=== PATIENT | female | born 1955 | race Caucasian/White ===

== ENCOUNTER 2017-06-30 10:11 | Day surgery (SDC) | payer MEDICARE, OTHER ==
[2017-06-24 16:41] VITALS: BMI 35.9
[~2017-06-30 10:11] MED LIST: LACTATED RINGERS 1,000 ML IV SCH
[2017-06-30 11:00] VITALS: RESP 18; TEMP 98
[2017-06-30] MEDS ORDERED: LIDOCAINE 1% 20 ML VIAL (10MG/ML) FOR IV START INTRADERMA ONE (11:07)
[2017-06-30] MEDS ORDERED: ETOMIDATE 2 MG/ML 10 ML VIAL ONE (11:34)
[2017-06-30] MEDS ORDERED: KETAMINE 10 MG/ML 20 ML VIAL ONE (11:34)
[2017-06-30] MEDS ORDERED: LIDOCAINE 1% INJ 10MG/ML (20 ML MDV) ONE (11:34)
[2017-06-30] MEDS ORDERED: MIDAZOLAM 2 MG/2 ML VIAL ONE (11:34)
--- NOTE | 2017-06-30 11:44 | P.GSHP ---
History of Present Illness H&P Date: 06/30/17 Chief Complaint: GERD, constipation Is a 62-year-old female who sees Dr. Nakul Gee.. Patient has had issues with GERD and constipation. She presents today for EGD and colonoscopy Past Medical History Past Medical History: Hypertension History of Any Multi-Drug Resistant Organisms: None Reported Past Surgical History: Cholecystectomy, Hysterectomy, Orthopedic Surgery Additional Past Surgical History / Comment(s): hand sx, rt toe sx, rt knee x2, left knee, shoulder sx Past Anesthesia/Blood Transfusion Reactions: Postoperative Nausea & Vomiting ( PONV) Smoking Status: Former smoker - Past Family History Father Family Medical History: Cancer Additional Family Medical History / Comment(s): liver Medications and Allergies Home Medications Medication Instructions Recorded Confirmed Type ALPRAZolam [Xanax] 0.5 mg PO HS 06/24/17 06/30/17 History Lisinopril-Hctz 10-12.5 mg 1 tab PO DAILY 06/24/17 06/30/17 History [Zestoretic 10-12.5] Allergies Allergy/AdvReac Type Severity Reaction Status Date / Time acetaminophen [From Vicodin] Allergy Hallucinati Verified 06/24/17 14:10 ons codeine Allergy Unknown Verified 06/24/17 14:10 Egg Derived Allergy Anaphylaxis Verified 06/24/17 14:10 hydrocodone [From Vicodin] Allergy Hallucinati Verified 06/24/17 14:10 ons ibuprofen [From Motrin] Allergy swelling/An Verified 06/24/17 14:10 aphylaxis morphine Allergy Severe Verified 06/24/17 14:10 Vomiting Surgical - Exam Vital Signs Temp Pulse Resp BP Pulse Ox 98.0 F 69 18 151/83 94 L 06/30/17 10:57 06/30/17 10:57 06/30/17 10:57 06/30/17 10:57 06/30/17 10:57 - General well developed, no distress - Eyes PERRL - ENT normal pinna - Neck no masses - Respiratory normal expansion - Cardiovascular Rhythm: regular - Abdomen Abdomen: soft, non tender Assessment and Plan Assessment: GERD, constipation. We'll perform EGD and colonoscopy.
--- NOTE | 2017-06-30 12:02 | P.OP ---
Date of Procedure: 06/30/17 Preoperative Diagnosis: GERD Constipation Postoperative Diagnosis: Antral gastritis Hiatal hernia Mild esophagitis Diverticulosis Rectal polyp Procedure(s) Performed: EGD Colonoscopy Anesthesia: MAC Surgeon: Albino Hunt Pathology: other (Antrum, esophagus, rectum polyp) Condition: stable Disposition: PACU Description of Procedure: Patient's placed on the endoscopy table in the lateral position. She received IV sedation. The gastroscope was oropharynx passed in the esophagus into the stomach. The scope was then placed through the pylorus. The first and second portion of the duodenum appeared normal. Scope was then brought back the antrum and this appeared mildly inflamed. A biopsies performed. The scope was then retroflexed and the remainder stomach appeared normal. There was a small hiatal hernia. The GE junction was at 38 cm. The distal esophagus was mildly inflamed a biopsies performed. The proximal esophagus appeared normal. The scope was withdrawn for patient. Next digital rectal exam was performed which revealed no abnormalities. Flexible colonoscope was then placed patient anus the scope was then passed throughout the entire colon. The ileocecal valve was visually. The cecum ascending and transverse colon appeared normal. The descending and sigmoid colon had extensive diverticular changes. Scope was then brought back the rectum and there was a hyperplastic polyp. This was removed with a forcep. Scope was withdrawn for patient.
[2017-06-30 12:54] VITALS: BP 175/95; PULSE 74
--- NOTE | 2017-07-02 10:50 | CDI ---
Date: 07/02/17 CDS/Machine Folder Name: Ирина Canseco Phone: If you have question, contact Charity Rudolph, Needle Felt Making Machine Operator at M-F 8:30 am to 6pm. Patient Name: Frida Fields Admit Date: 06/30/17 Discharge Date: 06/30/17 ATTENTION: The Clinical Documentation Specialists (CDI) and [facility] Coding Staff appreciate your assistance in clarifying documentation. Please respond to the clarification below the line at the bottom and electronically sign. The CDI & [facility] Coding staff will review the response and follow-up if needed. Please note: Queries are made part of the Legal Health Record. If you have any questions, please contact the author of this message via ITS or call the Needle Felt Making Machine Operator. , Please provide clarification whether the rectal polyp was removed with hot or cold forceps. Thank you for your assistance. - Cold forcep MTDD
== END 2017-06-30 13:12 | disposition home or self-care (01) ==
LOC: ORWHC2ENDO 10:11
PROVIDERS: ATTEND Surgery
DX: K29.50 Unspecified chronic gastritis without bleeding (principal); K21.0 Gastro-esophageal reflux disease with esophagitis; K44.9 Diaphragmatic hernia without obstruction or gangrene; K62.1 Rectal polyp; I10 Essential (primary) hypertension; Z79.899 Other long term (current) drug therapy; Z88.6 Allergy status to analgesic agent; Z88.5 Allergy status to narcotic agent; Z88.8 Allergy status to other drugs, medicaments and biological substances; Z91.012 Allergy to eggs
CPT/HCPCS: 88305; 88342; 45380; 43239; J2250; J2001

== ENCOUNTER → 2017-07-16 | Outpatient (CLI) | payer MEDICARE, OTHER ==
[2017-07-16 11:31] LABS: Basophils # (A) 0.1 k/uL (0-0.2); Basophils % (A) 1 %; Eosinophils # (A) 0.2 k/uL (0-0.7); Eosinophils % (A) 3 %; HCT 44.5 % (34.0-46.0); HGB 14.7 gm/dL (11.4-16.0); Lymphocytes % (A) 32 %; MCH 29.1 pg (25.0-35.0); MCV 88.4 fL (80.0-100.0); Mean Platelet Volume 7.7; Monocytes # (A) 0.4 k/uL (0-1.0); Monocytes % (A) 6 %; Neutrophils # (A) 3.5 k/uL (1.3-7.7); Neutrophils % (A) 55 %; Platelet Count 192 k/uL (150-450); RBC 5.04 m/uL (3.80-5.40); RDW 12.9 % (11.5-15.5); WBC 6.3 k/uL (3.8-10.6)
[2017-07-16 11:56] LABS: Potassium 3.9 mmol/L (3.5-5.1)
== END | disposition home or self-care (01) ==
LOC: LABPAT 10:45
PROVIDERS: ATTEND Surgery
DX: Z01.818 Encounter for other preprocedural examination (principal); R94.31 Abnormal electrocardiogram [ECG] [EKG]; Z01.812 Encounter for preprocedural laboratory examination
CPT/HCPCS: 36415; 80051; 85025; 93005

== ENCOUNTER 2017-07-21 09:43 | Day surgery (SDC) | payer MEDICARE, OTHER ==
[2017-07-15 09:59] VITALS: BMI 34.7
[~2017-07-21 09:43] MED LIST changes: +DEXAMETHASONE SOD PHOSPHATE 10 MG/ML 1 ML VIAL IV ONE; +HEPARIN SODIUM,PORCINE 5,000 UNIT/ML 1 ML VIAL SQ ONE; +HYDROmorphone 0.5 MG/0.5 ML SYRINGE IVP PRN; -LACTATED RINGERS 1,000 ML IV SCH; +MIDAZOLAM 2 MG/2 ML VIAL IV PRN; +ONDANSETRON 4 MG/2 ML VIAL IVP ONE; +ceFAZolin IN SWFI 2 GM/20 ML SYRINGE IVP ONE
[2017-07-21] MEDS ORDERED: LIDOCAINE 1% 20 ML VIAL (10MG/ML) FOR IV START INTRADERMA ONE (10:38)
[2017-07-21] MEDS: LACTATED RINGERS 1,000 ML IV SCH (10:38)
--- NOTE | 2017-07-21 11:20 | P.GSHP ---
History of Present Illness H&P Date: 07/21/17 Chief Complaint: GERD This a 62-year-old female referred from Dr. Nakul Gee. PaThe patient has had long-standing problems with reflux esophagitis. The patient underwent recent EGD is found have evidence of esophagitis. Patient has been well informed on the procedure of laparoscopic Sesar fundoplication. The patient is aware the risk of the conversion to the open procedure, risk of injury to the stomach, liver and spleen. The patient is also a risk of recurrent GERD and dysphagia symptoms. The patient understands there is a postoperative diet of full liquids for 2 weeks after surgery. Past Medical History Past Medical History: Fibromyalgia, GERD/Reflux, Hypertension, Osteoarthritis ( OA), Rheumatoid Arthritis (RA) Additional Past Medical History / Comment(s): hx migraines, palpitations, aldair parkinson white syndrom, hiatal hernia, hx ulcer, IBS, hx anemia, hx varicose veins History of Any Multi-Drug Resistant Organisms: None Reported Past Surgical History: Appendectomy, Section, Cholecystectomy, Hysterectomy, Orthopedic Surgery, Tubal Ligation Additional Past Surgical History / Comment(s): rt knee arthroscopy x 2, left knee arthroscopy, surgery on rt great toe, varicose vein surgery rt leg, rt shoulder surgery, rt hand surgery, Past Anesthesia/Blood Transfusion Reactions: Postoperative Nausea & Vomiting ( PONV) Additional Past Anesthesia/Blood Transfusion Reaction / Comment(s): took a long time to come out after cholecystectomy Smoking Status: Former smoker - Past Family History Father Family Medical History: Cancer Additional Family Medical History / Comment(s): liver Medications and Allergies Home Medications Medication Instructions Recorded Confirmed Type ALPRAZolam [Xanax] 0.5 mg PO HS 06/24/17 07/21/17 History Lisinopril-Hctz 10-12.5 mg 1 tab PO DAILY 06/24/17 07/21/17 History [Zestoretic 10-12.5] Aspirin 325 mg PO DAILY 07/15/17 07/15/17 History Multivitamins, Thera [Multivitamin 1 tab PO DAILY 07/15/17 07/15/17 History (formulary)] Omeprazole Magnesium [PriLOSEC OTC] 20 mg PO QAM 07/15/17 07/21/17 History Allergies Allergy/AdvReac Type Severity Reaction Status Date / Time acetaminophen [From Vicodin] Allergy Hallucinati Verified 07/15/17 09:47 ons/vomitin g codeine Allergy Unknown Verified 07/15/17 09:47 Egg Derived Allergy Anaphylaxis Verified 07/15/17 09:47 hydrocodone [From Vicodin] Allergy Hallucinati Verified 07/15/17 09:47 ons ibuprofen [From Motrin] Allergy swelling/An Verified 07/15/17 09:47 aphylaxis morphine Allergy Severe Verified 07/15/17 09:47 Vomiting Surgical - Exam Vital Signs Temp Pulse Resp BP Pulse Ox 98.1 F 68 18 187/83 96 07/21/17 10:26 07/21/17 10:26 07/21/17 10:26 07/21/17 10:26 07/21/17 10:26 - General well developed, no distress - Eyes PERRL - ENT normal pinna - Neck no masses - Respiratory normal expansion - Cardiovascular Rhythm: regular - Abdomen Abdomen: soft, non tender Assessment and Plan Assessment: GERD. We'll perform laparoscopic Sesar fundoplication.
[2017-07-21] MEDS ORDERED: LIDOCAINE 1% INJ 10MG/ML (20 ML MDV) ONE (11:41)
[2017-07-21] MEDS ORDERED: ePHEDrine SULFATE/0.9% NACL/PF 50 MG/5 ML SYRINGE IV ONE (11:41)
[2017-07-21] MEDS ORDERED: SUCCINYLCHOLINE CHLORIDE 100 MG/5 ML SYR IV ONE (11:41)
[2017-07-21] MEDS ORDERED: ROCURONIUM BROMIDE 10 MG/ML 10 ML VIAL IV ONE (11:41)
[2017-07-21] MEDS ORDERED: fentaNYL (PF) 50 MCG/ML 2 ML AMP ONE (11:41)
[2017-07-21] MEDS ORDERED: GLYCOPYRROLATE 0.2 MG/ML 2 ML VIAL ONE (11:41)
[2017-07-21] MEDS ORDERED: ETOMIDATE 2 MG/ML 10 ML VIAL ONE (11:41)
[2017-07-21] MEDS ORDERED: LABETALOL 5 MG/ML VIAL MDV ONE (11:41)
[2017-07-21] MEDS ORDERED: HYDROmorphone (PF) 1 MG/ML ONE (11:41)
[2017-07-21] MEDS ORDERED: MIDAZOLAM 2 MG/2 ML VIAL ONE (11:41)
[2017-07-21] MEDS ORDERED: BUPIVACAINE (PF) 0.25% 30 ML VIAL SQ ONE (12:12)
[2017-07-21] MEDS ORDERED: LACTATED RINGERS 1,000 ML IV ONE (12:19)
--- NOTE | 2017-07-21 12:38 | P.OP ---
Date of Procedure: 07/21/17 Preoperative Diagnosis: GERD Postoperative Diagnosis: GERD Procedure(s) Performed: Laparoscopic Sesar fundoplication Anesthesia: VICKY Surgeon: Albino Hunt Estimated Blood Loss (ml): 5 Pathology: none sent Condition: stable Disposition: PACU Description of Procedure: Heenahe patient was placed on the operating table in the supine position. The patient received general anesthesia. And was placed in dorsal lithotomy position. The patient was prepped and draped in the usual sterile fashion. The skin incision sites were anesthetized with 1% local Xylocaine. The skin was incised in the left periumbilical area and then using a blade less 5 mm trocar under direct visualization panel cavity was entered. After adequate insufflation the laparoscope was then placed into the peritoneal cavity. Next a 5 mm trochars placed in the right epigastric position. Another 5 millimeter trocar the right lateral position. Another 5 millimeter trocar in the left lateral position a 5 mm trocar is placed in the left epigastric position. And then the initial 5 mm trocar was exchanged for a 10 mm trocar. The left lateral lobe liver was retracted. The hernia was seen. The crural defect was then dissected using the Harmonic scissors device. A 360 crural dissection was performed the esophagus stomach was reduced back into the peritoneal Cavity. The crural defect was then closed using 2-0 Ethibond suture. Next the fundus of the stomach was mobilized using the Sullivan scissors device. and then a 58-[place] bougie dilator was placed oropharynx passed into the esophagus and stomach the fundal plication wrap was then performed by grasping the fundus posteriorly and bringing it around the esophagus and stomach fundoplication was then performed using 2-0 Ethibond suture. Care was taken that the fundal location rested over top of the intra-abdominal esophagus. There was no injury seen to the stomach or esophagus. The dilator was then withdrawn. The abdomen was irrigated there is no bleeding seen. The trochars were then withdrawn and then skin incision sites were closed using 3-0 Monocryl suture Steri-Strips are applied. Patient thought procedure well and sent to recovery room in stable condition.
[2017-07-21] MEDS ORDERED: ENALAPRILAT 1.25 MG/ML 1 ML VIAL IVP ONE (13:52)
[2017-07-21] MEDS: D5-0.45% NACL WITH KCL 20MEQ/L 1,000 ML IV SCH (21:37)
[2017-07-21] MEDS: HYDROmorphone 2 MG/ML 1 ML SYRINGE IVP PRN (23:05)
[2017-07-22] MEDS: HYDROmorphone 2 MG/ML 1 ML SYRINGE IVP PRN ×2 (02:09→09:23)
[2017-07-22] MEDS: D5-0.45% NACL WITH KCL 20MEQ/L 1,000 ML IV SCH ×2 (02:11→04:53)
[2017-07-22] MEDS: LACTATED RINGERS 1,000 ML IV SCH (04:53)
[2017-07-22 07:56] VITALS: PULSE 59; RESP 16; TEMP 98.2
--- NOTE | 2017-07-22 08:55 | FL ---
SINGLE CONTRAST UPPER GI EXAMINATION: CLINICAL HISTORY: 62-year-old female rule out leak/obstruction status post Sesar fundoplication for hiatal hernia TECHNIQUE: Single contrast exam performed with 50 ml Omnipaque 350 contrast. Total fluoroscopy time: 37 seconds. Total images: 10 FINDINGS: The patient swallowed oral contrast without difficulty or delay. Esophageal peristalsis and motility are within normal limits. There are postsurgical changes of Sesar fundoplication with good flow of contrast along the surgical site. There is no evidence of contrast extravasation to suggest leak. No free intraperitoneal air is seen below the hemidiaphragms. IMPRESSION: No evidence of leak or significant obstruction status post Sesar fundoplication.
[2017-07-22] MEDS ORDERED: ENOXAPARIN 40 MG/0.4 ML SYRINGE SQ SCH (09:00)
[2017-07-22] MEDS ORDERED: LISINOPRIL-HCTZ 10-12.5 MG 1 EACH TAB PO SCH (09:00)
[2017-07-22] MEDS ORDERED: LISINOPRIL PO SCH (09:00)
[2017-07-22] MEDS ORDERED: HCTZ PO SCH (09:00)
--- NOTE | 2017-07-22 10:21 | P.DS ---
Providers Expected date of discharge: 07/22/17 Attending physician: Albino Hunt Consults: 07/21/17 12:38 Consult Physician Routine Consulting Provider: Nakul Giordano Consult Reason/Comments: Medical management Do you want consulting provider notified?: Yes Primary care physician: Nakul Giordano [place] [facility] Course: 52-year-old female who presented on the elective basis to undergo a procedure laparoscopic Sesar fundoplication for symptomatic reflux esophagitis. The patient underwent a recent EGD was found have evidence of esophagitis. Postop there were no new events. Patient was seen by dietitian postop. Patient was up ambulating on the unit and tolerating a diet. Is felt to be appropriate to be discharged home. Patient understood there was a postop diet of full liquid for 2 weeks after surgery Impression discharge diagnosis A recent EGD showing evidence of esophagitis Long-standing symptomatic symptoms reflux esophagitis Postop July 21 laparoscopic Sesar fundoplication for symptomatic reflux esophagitis Hypertension Rheumatoid arthritis Osteoarthritis The above impression and plan of care have been discussed and directed by signing physician. Lamar Tineo nurse practitioner acting as scribe for signing physician. Plan - Discharge Summary Discharge Rx Participant: No New Discharge Prescriptions: Continue ALPRAZolam [Xanax] 0.5 mg PO HS Lisinopril-Hctz 10-12.5 mg [Zestoretic 10-12.5] 1 tab PO DAILY Aspirin 325 mg PO DAILY Multivitamins, Thera [Multivitamin (formulary)] 1 tab PO DAILY Omeprazole Magnesium [PriLOSEC OTC] 20 mg PO QAM Discharge Medication List ALPRAZolam [Xanax] 0.5 mg PO HS 06/24/17 [History] Lisinopril-Hctz 10-12.5 mg [Zestoretic 10-12.5] 1 tab PO DAILY 06/24/17 [History ] Aspirin 325 mg PO DAILY 07/15/17 [History] Multivitamins, Thera [Multivitamin (formulary)] 1 tab PO DAILY 07/15/17 [History ] Omeprazole Magnesium [PriLOSEC OTC] 20 mg PO QAM 07/15/17 [History] Follow up Appointment(s)/Referral(s): Albino Hunt MD [STAFF PHYSICIAN] - 1 Week Activity/Diet/Wound Care/Special Instructions: No tub bath for six weeks. Shower daily. No lifting over 10 pounds for the next 6 weeks. May use ice packs to surgical site. No driving while taking narcotic for pain. Discharge Disposition: HOME SELF-CARE
[2017-07-22 11:20] VITALS: BP 142/80
--- NOTE | 2017-07-22 11:20 | P.CONS ---
History of Present Illness - Reason for Consult Consult date: 07/22/17 Medical management - Chief Complaint s/p Sesar fundoplication - History of Present Illness 62-year-old female who underwent elective laparoscopic Sesar fundoplication on 07/21/[address] Giordano was consulted for medical management. The patient has a history of gastric suction reflux disease , hypertension, osteoarthritis, rheumatoid arthritis, and fibromyalgia. She is a former cigarette smoker. The patient was seen and examined at the bedside this morning on rounds with Dr. Giordano. The patient is awake and alert sitting up in bed. She denies pain or discomfort at this time. Denies chest pain or pressure. Denies shortness of breath or cough. Vital signs have been stable. She is afebrile. Blood pressure is slightly elevated but home medications have been reordered. She is on room air with oxygen saturation greater than 92%. She is anticipating being discharged home today. She denies any additional concerns or complaints. Review of Systems GENERAL: Patient denies fever. Denies chills. EYES: Denies blurred vision. Denies vision changes. Denies eye pain. EARS, NOSE, MOUTH, & THROAT: Denies headache. Denies sore throat. Denies ear pain. RESPIRATORY: Denies cough. Denies shortness of breath. Denies sputum production. Denies hemoptysis. CARDIOVASCULAR: Denies chest pain or pressure. Denies palpitations. Denies arrhythmias. GASTROINTESTINAL: Positive for history of GERD. Denies abdominal pain. Denies diarrhea. Denies constipation. Denies nausea. Denies vomiting. Denies blood in the stool. GENITOURINARY: Denies urinary frequency. Denies burning. Denies dysuria. Denies cloudy urine. Denies blood in the urine. MUSCULOSKELETAL: Denies myalgias. Denies joint swelling. Denies decreased range of motion beyond patients baseline. INTEGUMENTARY: Denies pruitis. Denies rash. PSYCHIATRIC: Denies suicidal or homicial ideations. ENDOCRINE: Denies weight change. Denies polydipsia. Denies polyuria. HEMATOLOGIC: Denies bleeding disorders. Past Medical History Past Medical History: Fibromyalgia, GERD/Reflux, Hypertension, Osteoarthritis ( OA), Rheumatoid Arthritis (RA) Additional Past Medical History / Comment(s): hx migraines, palpitations, aldair parkinson white syndrom, hiatal hernia, hx ulcer, IBS, hx anemia, hx varicose veins History of Any Multi-Drug Resistant Organisms: None Reported Past Surgical History: Appendectomy, Section, Cholecystectomy, Hysterectomy, Orthopedic Surgery, Tubal Ligation Additional Past Surgical History / Comment(s): rt knee arthroscopy x 2, left knee arthroscopy, surgery on rt great toe, varicose vein surgery rt leg, rt shoulder surgery, rt hand surgery, Past Anesthesia/Blood Transfusion Reactions: Postoperative Nausea & Vomiting ( PONV) Additional Past Anesthesia/Blood Transfusion Reaction / Comm: took a long time to come out after cholecystectomy Past Psychological History: No Psychological Hx Reported Smoking Status: Former smoker Past Alcohol Use History: Rare Additional Past Alcohol Use History / Comment(s): states smoked less than 1ppd, quit smoking 1985, smoked for 5 yrs Past Drug Use History: None Reported - Past Family History Father Family Medical History: Cancer Additional Family Medical History / Comment(s): liver Medications and Allergies Home Medications Medication Instructions Recorded Confirmed Type ALPRAZolam [Xanax] 0.5 mg PO HS 06/24/17 07/21/17 History Lisinopril-Hctz 10-12.5 mg 1 tab PO DAILY 06/24/17 07/21/17 History [Zestoretic 10-12.5] Aspirin 325 mg PO DAILY 07/15/17 07/15/17 History Multivitamins, Thera [Multivitamin 1 tab PO DAILY 07/15/17 07/15/17 History (formulary)] Omeprazole Magnesium [PriLOSEC OTC] 20 mg PO QAM 07/15/17 07/21/17 History Allergies Allergy/AdvReac Type Severity Reaction Status Date / Time acetaminophen [From Vicodin] Allergy Hallucinati Verified 07/15/17 09:47 ons/vomitin g codeine Allergy Unknown Verified 07/15/17 09:47 Egg Derived Allergy Anaphylaxis Verified 07/15/17 09:47 hydrocodone [From Vicodin] Allergy Hallucinati Verified 07/15/17 09:47 ons ibuprofen [From Motrin] Allergy swelling/An Verified 07/15/17 09:47 aphylaxis morphine Allergy Severe Verified 07/15/17 09:47 Vomiting Physical Exam Vitals: Vital Signs Temp Pulse Resp BP Pulse Ox 07/22/17 07:55 98.2 F 59 L 16 164/74 96 07/22/17 01:49 98.7 F 90 17 134/77 93 L 07/21/17 20:00 98.5 F 85 16 151/88 94 L 07/21/17 19:10 78 143/63 07/21/17 18:55 89 160/63 07/21/17 18:40 81 159/75 07/21/17 18:25 83 142/68 07/21/17 18:10 88 144/87 07/21/17 17:55 89 138/95 07/21/17 17:40 82 146/81 07/21/17 17:25 83 164/80 07/21/17 17:10 95.7 F L 90 20 151/87 100 07/21/17 16:30 90 16 156/74 94 L 07/21/17 16:15 88 16 156/67 92 L 07/21/17 16:00 90 16 163/73 93 L 07/21/17 15:45 69 16 158/65 94 L 07/21/17 15:30 78 16 160/72 94 L 07/21/17 15:15 78 16 167/75 95 07/21/17 15:00 68 16 154/66 93 L 07/21/17 14:45 75 16 158/72 96 07/21/17 14:30 79 16 165/74 95 07/21/17 14:23 161/71 07/21/17 14:15 63 16 164/73 94 L 07/21/17 14:05 64 16 168/78 98 07/21/17 13:59 60 16 173/96 96 07/21/17 13:50 62 16 182/95 96 07/21/17 13:43 67 16 163/76 99 07/21/17 13:27 65 16 166/78 97 07/21/17 13:12 67 16 178/84 100 07/21/17 12:57 97 F L 69 16 178/81 99 Intake and Output 07/21/17 07/22/17 07/22/17 22:59 06:59 14:59 Intake Total 1350 1000 Balance 1350 1000 Intake: IV 350 Intake, IV Titration 1000 1000 Amount D5-0.45% NaCl with KCl 1000 1000 20Meq/l 1,000 ml @ 125 mls/hr IV .Q8H [facility] Rx#: [id number] Other: Voiding Method Toilet # Voids 3 Weight 86.183 kg Patient Weight 07/23/17 06:59 Weight 86.183 kg GENERAL: This is a 62-year-old female in no apparent distress at the time of examination. Pleasant and cooperative. HEENT: Head is atraumatic, normocephalic. Pupils are equal, round, and reactive to light. Sclerae anicteric. Conjunctivae are clear. Mucus membranes of the mouth are moist. Neck is supple. RESPIRATORY: Clear to ausculation. No wheezes, rales, or rhonchi. No use of accessory muscles. Patient maintaining oxygen saturation greater than 92%. No chest wall tenderness is noted on palpation or with deep breathing. CARDIOVASCULAR: Regular rate and rhythm. S1 and S2 noted. No JVD noted. No S3 or S4 noted. GASTROINTESTINAL: No distention noted. Abdomen soft and round. Normal active bowel sounds auscultated x 4 quadrants. INTEGUMENTARY: Laparoscopic surgical sites without erythema or drainage. No signs of infection. No cyanosis. No jaundice. No rashes noted. No cellulitis noted. EXTREMITIES: 2+ peripheral pulses. No evidence of peripheral edema. No calf tenderness noted. NEUROLOGIC: Cranial nerves II-XII intact. PSYCHIATRIC: Awake, alert, and oriented X 3. Appropriate affect. Intact judgement and insight. Assessment and Plan Plan: ASSESSMENT: Gastroesophageal reflux disease, S/P Sesar fundoplication, pod #1 Essential hypertension History of Osteoarthritis and rheumatoid arthritis Obesity: BMI 34.8 History of nicotine dependence, in remission, patient is a former cigarette smoker PLAN: -Continue postoperative surgical care per Dr. Hunt -Home meds as appropriate -Monitor labs -Pain control -Encourage ambulation. Activity as tolerated -Monitor vital signs and address as appropriate -Further recommendations pending patient's course -Patient is cleared for discharge home from a medical standpoint when cleared by Dr. Hunt Nurse practitioner note has been reviewed by physician. Signing provider agrees with the documented findings, assessment, and plan of care.
== END 2017-07-22 11:55 | disposition home or self-care (01) ==
LOC: OR 09:43 → 3SUR 12:42 → OR 12:42 → 4FBP 12:42 → OR 07-22 11:55
PROVIDERS: ATTEND Surgery
DX: K21.0 Gastro-esophageal reflux disease with esophagitis (principal); K44.9 Diaphragmatic hernia without obstruction or gangrene; I10 Essential (primary) hypertension; M06.9 Rheumatoid arthritis, unspecified; M19.90 Unspecified osteoarthritis, unspecified site; M79.7 Fibromyalgia; G43.909 Migraine, unspecified, not intractable, without status migrainosus; I45.6 Pre-excitation syndrome; K58.9 Irritable bowel syndrome, unspecified; R00.2 Palpitations; Z79.899 Other long term (current) drug therapy; Z88.6 Allergy status to analgesic agent; Z91.012 Allergy to eggs; Z88.5 Allergy status to narcotic agent; Z91.018 Allergy to other foods; Z98.51 Tubal ligation status; Z87.891 Personal history of nicotine dependence; Z79.82 Long term (current) use of aspirin
CPT/HCPCS: 74210; 43280; J2250; J1170 ×3; J1644; J1100; Q9967; J2405; J2001; J1650; J3010; J0330; J0690

== ENCOUNTER 2017-08-11 06:10 | Emergency (ER) | payer MEDICARE, OTHER ==
[2017-08-11] MEDS ORDERED: PANTOPRAZOLE 40 MG/10 ML VIAL IVP STA (06:20)
[2017-08-11] MEDS ORDERED: SODIUM CHLORIDE 0.9% 1,000 ML IV STA ×2 (06:20)
[2017-08-11] MEDS ORDERED: ONDANSETRON 4 MG/2 ML VIAL IVP STA (06:20)
[2017-08-11] MEDS ORDERED: SODIUM CHLORIDE 0.9% 500 ML IV STA (06:20)
[2017-08-11] MEDS ORDERED: RX INFO: IV CONTRAST WAS GIVEN 1 EACH MISC MISCELLANE PRN (06:20)
[2017-08-11] MEDS ORDERED: HYDROmorphone 0.5 MG/0.5 ML SYRINGE IVP STA ×2 (06:21→10:46)
[2017-08-11] MEDS ORDERED: LORazepam 2 MG/ML INJ IV STA (06:21)
--- NOTE | 2017-08-11 06:29 | ED ---
General Adult HPI - General Source: patient, RN notes reviewed, old records reviewed Mode of arrival: ambulatory Limitations: physical limitation <Dm Aranda - Last Filed: 08/11/17 06:28> <Brigido Mckinney - Last Filed: 08/11/17 11:47> - General Chief complaint: Abdominal Pain Stated complaint: abd pain Time Seen by Provider: 08/11/17 06:20 - History of Present Illness Initial comments: This is a 62-year-old female to the ER prevention of abdominal pain. Patient states she has severe bowel. Nausea or vomiting. No fever. Patient has history of significant surgeries, multiple abdominal surgeries. No recent travel history no sick contacts no diarrhea. No modifying factors for pain or vomiting (Dm Aranda) - Related Data Home Medications Medication Instructions Recorded Confirmed ALPRAZolam [Xanax] 0.5 mg PO HS 06/24/17 08/11/17 Lisinopril-Hctz 10-12.5 mg 1 tab PO DAILY 06/24/17 08/11/17 [Zestoretic 10-12.5] Aspirin 325 mg PO DAILY 07/15/17 08/11/17 Multivitamins, Thera [Multivitamin 1 tab PO DAILY 07/15/17 08/11/17 (formulary)] Omeprazole Magnesium [PriLOSEC OTC] 20 mg PO QAM 07/15/17 08/11/17 Previous Rx's Medication Instructions Recorded HYDROcodone/APAP 5-325MG [[facility] 1 tab PO Q6HR PRN #12 tab 08/11/17 5-325] Allergies Allergy/AdvReac Type Severity Reaction Status Date / Time acetaminophen [From Vicodin] Allergy Hallucinati Verified 08/11/17 10:24 ons/vomitin g codeine Allergy Unknown Verified 08/11/17 10:24 Egg Derived Allergy Anaphylaxis Verified 08/11/17 10:24 hydrocodone [From Vicodin] Allergy Hallucinati Verified 08/11/17 10:24 ons ibuprofen [From Motrin] Allergy swelling/An Verified 08/11/17 10:24 aphylaxis morphine Allergy Severe Verified 08/11/17 10:24 Vomiting Review of Systems ROS Other: All systems not noted in ROS Statement are negative. <Dm Aranda - Last Filed: 08/11/17 06:28> ROS Other: All systems not noted in ROS Statement are negative. <Brigido Mckinney - Last Filed: 08/11/17 11:47> ROS Statement: Those systems with pertinent positive or pertinent negative responses have been documented in the HPI. Past Medical History Past Medical History: Fibromyalgia, GERD/Reflux, Hypertension, Osteoarthritis ( OA), Rheumatoid Arthritis (RA) Additional Past Medical History / Comment(s): hx migraines, palpitations, aldair parkinson white syndrom, hiatal hernia, hx ulcer, IBS, hx anemia, hx varicose veins History of Any Multi-Drug Resistant Organisms: None Reported Past Surgical History: Appendectomy, Section, Cholecystectomy, Hernia Repair, Hysterectomy, Orthopedic Surgery, Tubal Ligation Additional Past Surgical History / Comment(s): rt knee arthroscopy x 2, left knee arthroscopy, surgery on rt great toe, varicose vein surgery rt leg, rt shoulder surgery, rt hand surgery, diaphragm surgery Past Anesthesia/Blood Transfusion Reactions: Postoperative Nausea & Vomiting ( PONV) Additional Past Anesthesia/Blood Transfusion Reaction / Comment(s): took a long time to come out after cholecystectomy Past Psychological History: No Psychological Hx Reported Smoking Status: Former smoker Past Alcohol Use History: Rare Past Drug Use History: None Reported - Past Family History Father Family Medical History: Cancer Additional Family Medical History / Comment(s): liver <Dm Aranda - Last Filed: 08/11/17 06:28> General Exam Limitations: physical limitation General appearance: alert, in no apparent distress, anxious, in distress Head exam: Present: atraumatic, normocephalic, normal inspection Eye exam: Present: normal appearance, PERRL, EOMI. Absent: scleral icterus, conjunctival injection, periorbital swelling ENT exam: Present: normal exam, mucous membranes moist Neck exam: Present: normal inspection. Absent: tenderness, meningismus, lymphadenopathy Respiratory exam: Present: normal lung sounds bilaterally. Absent: respiratory distress, wheezes, rales, rhonchi, stridor Cardiovascular Exam: Present: regular rate, normal rhythm, normal heart sounds. Absent: systolic murmur, diastolic murmur, rubs, gallop, clicks GI/Abdominal exam: Present: soft, normal bowel sounds. Absent: distended, tenderness, guarding, rebound, rigid Extremities exam: Present: normal inspection, full ROM, normal capillary refill. Absent: tenderness, pedal edema, joint swelling, calf tenderness Back exam: Present: normal inspection Neurological exam: Present: alert, oriented X3, CN II-XII intact Psychiatric exam: Present: normal affect, normal mood Skin exam: Present: warm, dry, intact, normal color. Absent: rash <Dm Aranda - Last Filed: 08/11/17 06:28> Vital Signs 08/11/17 08/11/17 08/11/17 06:14 08:20 10:56 Temperature 97.6 F Pulse Rate 59 L 74 73 Respiratory 28 H 16 18 Rate Blood Pressure 126/77 155/71 112/57 O2 Sat by Pulse 100 97 100 Oximetry Medical Decision Making <Dm Aranda - Last Filed: 08/11/17 06:28> - Lab Data Result diagrams: 08/11/17 06:41 08/11/17 06:41 <Brigido Mckinney - Last Filed: 08/11/17 11:47> - Medical Decision Making 62-year-old female presenting with abdominal pain nausea vomiting. Patient does report some diarrhea although this is been present for the past 6 months. Patient had recent laparoscopic surgery proximally 3 weeks ago. She has been doing well since that time. Pain began today. She was evaluated by previous physician, and signed out awaiting computed tomography scan of the abdomen. This is significant for hepatomegaly and steatosis, LFTs are normal. There is some enteritis consistent with her vomiting and diarrhea. No diverticulitis. Postsurgical changes of Sesar fundoplication. Initial lactic is 3.5, all laboratory studies are unremarkable. Repeat lactic after IV hydration is 1.7 which is normal. Patient has been tolerating clear liquids in the emergency department. She will be discharged home with outpatient follow-up. She is instructed on clear liquid diet. She will be prescribed [facility] for pain. Case is discussed with Dr. Hunt, he is comfortable with outpatient management. (Brigido Mckinney) - Lab Data Lab Results 08/11/17 08/11/17 08/11/17 Range/Units 06:35 06:41 06:41 WBC 10.0 (3.8-10.6) k/uL RBC 5.18 (3.80-5.40) m/uL Hgb 15.0 (11.4-16.0) gm/dL Hct 45.6 (34.0-46.0) % MCV 88.1 (80.0-100.0) fL MCH 28.9 (25.0-35.0) pg MCHC 32.8 (31.0-37.0) g/dL RDW 12.9 (11.5-15.5) % Plt Count 237 (150-450) k/uL Neutrophils % 77 % Lymphocytes % 15 % Monocytes % 5 % Eosinophils % 1 % Basophils % 1 % Neutrophils # 7.7 (1.3-7.7) k/uL Lymphocytes # 1.5 (1.0-4.8) k/uL Monocytes # 0.5 (0-1.0) k/uL Eosinophils # 0.1 (0-0.7) k/uL Basophils # 0.1 (0-0.2) k/uL Sodium 142 (137-145) mmol/L Potassium 4.4 (3.5-5.1) mmol/L Chloride 103 (98-107) mmol/L Carbon Dioxide 24 (22-30) mmol/L Anion Gap 15 mmol/L BUN 20 H (7-17) mg/dL Creatinine 0.72 (0.52-1.04) mg/dL Est GFR (MDRD) Af Amer >60 (>60 ml/min/1.73 sqM) Est GFR (MDRD) Non-Af >60 (>60 ml/min/1.73 sqM) Glucose 175 H (74-99) mg/dL Lactic Ac Sepsis Rflx Plasma Lactic Acid Chadd (0.7-2.0) mmol/L Calcium 9.9 (8.4-10.2) mg/dL Total Bilirubin 0.6 (0.2-1.3) mg/dL AST 29 (14-36) U/L ALT 31 (9-52) U/L Alkaline Phosphatase 84 (38-126) U/L Total Protein 7.1 (6.3-8.2) g/dL Albumin 4.4 (3.5-5.0) g/dL Amylase 37 (30-110) U/L Lipase 86 (23-300) U/L Urine Color Yellow Urine Appearance Clear (Clear) Urine pH 6.5 (5.0-8.0) Ur Specific [place] 1.015 (1.001-1.035) Urine Protein Trace H (Negative) Urine Glucose (UA) Negative (Negative) Urine Ketones Negative (Negative) Urine Blood Negative (Negative) Urine Nitrite Negative (Negative) Urine Bilirubin Negative (Negative) Urine Urobilinogen 2.0 (<2.0) mg/dL Ur Leukocyte Esterase Negative (Negative) 08/11/17 08/11/17 08/11/17 Range/Units 06:41 07:16 10:51 WBC (3.8-10.6) k/uL RBC (3.80-5.40) m/uL Hgb (11.4-16.0) gm/dL Hct (34.0-46.0) % MCV (80.0-100.0) fL MCH (25.0-35.0) pg MCHC (31.0-37.0) g/dL RDW (11.5-15.5) % Plt Count (150-450) k/uL Neutrophils % % Lymphocytes % % Monocytes % % Eosinophils % % Basophils % % Neutrophils # (1.3-7.7) k/uL Lymphocytes # (1.0-4.8) k/uL Monocytes # (0-1.0) k/uL Eosinophils # (0-0.7) k/uL Basophils # (0-0.2) k/uL Sodium (137-145) mmol/L Potassium (3.5-5.1) mmol/L Chloride (98-107) mmol/L Carbon Dioxide (22-30) mmol/L Anion Gap mmol/L BUN (7-17) mg/dL Creatinine (0.52-1.04) mg/dL Est GFR (MDRD) Af Amer (>60 ml/min/1.73 sqM) Est GFR (MDRD) Non-Af (>60 ml/min/1.73 sqM) Glucose (74-99) mg/dL Lactic Ac Sepsis Rflx Y Plasma Lactic Acid Chadd 3.5 H* 1.7 (0.7-2.0) mmol/L Calcium (8.4-10.2) mg/dL Total Bilirubin (0.2-1.3) mg/dL AST (14-36) U/L ALT (9-52) U/L Alkaline Phosphatase (38-126) U/L Total Protein (6.3-8.2) g/dL Albumin (3.5-5.0) g/dL Amylase (30-110) U/L Lipase (23-300) U/L Urine Color Urine Appearance (Clear) Urine pH (5.0-8.0) Ur Specific [place] (1.001-1.035) Urine Protein (Negative) Urine Glucose (UA) (Negative) Urine Ketones (Negative) Urine Blood (Negative) Urine Nitrite (Negative) Urine Bilirubin (Negative) Urine Urobilinogen (<2.0) mg/dL Ur Leukocyte Esterase (Negative) Disposition <Dm Aranda - Last Filed: 08/11/17 06:28> Time of Disposition: 11:45 <Brigido Mckinney - Last Filed: 08/11/17 11:47> Clinical Impression: Abdominal pain, Enteritis Disposition: HOME SELF-CARE Condition: Good Instructions: Abdominal Pain (ED) Prescriptions: HYDROcodone/APAP 5-325MG [[facility] 5-325] 1 tab PO Q6HR PRN #12 tab PRN Reason: Pain Referrals: Nakul Giordano DO [Primary Care Provider] - 1-2 days Albino Hunt MD [STAFF PHYSICIAN] - 1-2 days
[2017-08-11 07:03] LABS: Appearance,Urine Clear (Clear); Bilirubin,Urine Negative (Negative); Blood,Urine Negative (Negative); Color,Urine Yellow; Glucose,Urine (UA) Negative (Negative); Ketones,Urine Negative (Negative); Leukocyte Esterase,Urine Negative (Negative); Nitrite,Urine Negative (Negative); PH, Urine 6.5 (5.0-8.0); Protein,Urine Trace (Negative); Specific Gravity,Urine 1.015 (1.001-1.035)
[2017-08-11 07:08] LABS: ALT 31 U/L (9-52); AST 29 U/L (14-36); Albumin 4.4 g/dL (3.5-5.0); Alkaline Phosphatase 84 U/L (38-126); Amylase 37 U/L (30-110); Anion Gap 15 mmol/L; Blood Urea Nitrogen 20 mg/dL (7-17); Calcium 9.9 mg/dL (8.4-10.2); Carbon Dioxide 24 mmol/L (22-30); Chloride 103 mmol/L (98-107); Glucose 175 mg/dL (74-99); Lipase 86 U/L (23-300); Potassium 4.4 mmol/L (3.5-5.1); Sodium 142 mmol/L (137-145); Total Bilirubin 0.6 mg/dL (0.2-1.3); Total Protein 7.1 g/dL (6.3-8.2)
[2017-08-11 07:14] LABS: Basophils # (A) 0.1 k/uL (0-0.2); Basophils % (A) 1 %; Eosinophils # (A) 0.1 k/uL (0-0.7); Eosinophils % (A) 1 %; HCT 45.6 % (34.0-46.0); Lymphocytes # (A) 1.5 k/uL (1.0-4.8); Lymphocytes % (A) 15 %; MCH 28.9 pg (25.0-35.0); MCHC 32.8 g/dL (31.0-37.0); MCV 88.1 fL (80.0-100.0); Mean Platelet Volume 7.8; Monocytes # (A) 0.5 k/uL (0-1.0); Monocytes % (A) 5 %; Neutrophils # (A) 7.7 k/uL (1.3-7.7); Neutrophils % (A) 77 %; Platelet Count 237 k/uL (150-450); RBC 5.18 m/uL (3.80-5.40); RDW 12.9 % (11.5-15.5)
--- NOTE | 2017-08-11 08:23 | CT ---
EXAMINATION TYPE: CT abdomen pelvis w con DATE OF EXAM: 08/11/2017 COMPARISON: 03/27/2010 HISTORY: 62-year-old female with abdominal pain TECHNIQUE: Contiguous axial scanning of the abdomen and pelvis following administration of 100 ml Omn ipaque 300 IV contrast. Delayed images through the kidneys and coronal/sagittal reconstructions perf ormed. CT DLP: 1422 mGycm Automated exposure control for dose reduction was used. FINDINGS: Heart is upper limits of normal in size with trace anterior basilar pericardial effusion. Lung bases clear without pleural effusion. Liver mildly enlarged at 18.9 cm craniocaudal. There is low attenuation suggesting fatty infiltration . Mild prominence to the bile duct and 9 mm. There is normal distal tapering and cholecystectomy clips are present. Portal venous system is patent. Adrenal glands, left kidney, spleen, pancreas and no gross abnormality. 2.8 cm cyst lateral right kidney is redemonstrated. No dilated small bowel, free fluid, or free air. Postsurgical changes of Luz fundoplication. Some prominent fluid-filled small bowel loops are noted in the lower abdomen and pelvis. No abnormal dilated tubular fluid-filled structure is identified in the right lower quadrant to sugge st acute appendicitis. Mild stool in the ascending colon and mild diverticulosis along the proximal s igmoid. No pericolonic inflammatory change. Bladder partially urine distended. Uterus surgically absent. Ovaries are visualized. Some prominent v arices in the left adnexa and along the left gonadal vein. Pelvis platelets. No abnormal fluid collec tion in the pelvis or pelvic lymphadenopathy seen. Bones: Mild degenerative changes at the hips. Facet arthropathy lower lumbar spine with grade 1 anter olisthesis at L4-L5. Moderate degenerative disc disease L5-S1. Endplate spondylosis lower thoracic sp ine. No osseous destructive process. IMPRESSION: 1. HEPATOMEGALY AND HEPATIC STEATOSIS. CORRELATE WITH LFT's, LIPID PROFILE, AND PATIENT RISK FACTORS. 2. SOME PROMINENT FLUID-FILLED SMALL BOWEL LOOPS IN THE LOWER ABDOMEN AND PELVIS ARE NONSPECIFIC AND MAY REFLECT A MILD ENTERITIS. 3. PROXIMAL SIGMOID DIVERTICULOSIS WITHOUT ACUTE DIVERTICULITIS. 4. SOME PROMINENT LEFT ADNEXAL VARICES EXTENDING ALONG THE LEFT GONADAL VEIN. THIS WAS PRESENT IN 201 0 AND IS NONSPECIFIC. QUERY ANY POTENTIAL SYMPTOMS OF PELVIC CONGESTION SYNDROME. 5. STATUS POST LUZ FUNDOPLICATION.
[2017-08-11 10:57] VITALS: RESP 18
[2017-08-11 12:13] VITALS: BP 115/63; PULSE 70; TEMP 98
== END 2017-08-11 12:17 | disposition home or self-care (01) ==
LOC: EC 06:10
DX: K52.9 Noninfective gastroenteritis and colitis, unspecified (principal); K76.0 Fatty (change of) liver, not elsewhere classified; I10 Essential (primary) hypertension; K21.9 Gastro-esophageal reflux disease without esophagitis; M19.90 Unspecified osteoarthritis, unspecified site; M06.9 Rheumatoid arthritis, unspecified; I45.6 Pre-excitation syndrome; Z87.891 Personal history of nicotine dependence; Z79.82 Long term (current) use of aspirin; Z79.899 Other long term (current) drug therapy; Z98.890 Other specified postprocedural states; Z88.5 Allergy status to narcotic agent; Z88.6 Allergy status to analgesic agent; Z88.8 Allergy status to other drugs, medicaments and biological substances; Z91.012 Allergy to eggs; Z87.19 Personal history of other diseases of the digestive system; Z90.49 Acquired absence of other specified parts of digestive tract; Z80.0 Family history of malignant neoplasm of digestive organs
CPT/HCPCS: 36415; 80053; 82150; 83605; 83690; 85025; 81003; 87086; 74177; 99284; 96374; 96375 ×3; 96376; 96361 ×5; J2060; J2405; Q9967; C9113; J1170

== ENCOUNTER 2017-10-31 12:42 | Emergency (ER) | payer MEDICARE, OTHER ==
[2017-10-31 13:07] VITALS: BP 203/95; PULSE 71; RESP 18; TEMP 98.1
[2017-10-31 13:23] LABS: Appearance,Urine Cloudy (Clear); Bacteria,Urine Few /hpf; Bilirubin,Urine Negative (Negative); Blood,Urine Moderate (Negative); Budding Yeast,Urine Occasional /hpf; Color,Urine Light Yellow; Glucose,Urine (UA) Negative (Negative); Ketones,Urine Negative (Negative); Leukocyte Esterase,Urine Large (Negative); Nitrite,Urine Negative (Negative); Protein,Urine Trace (Negative); Specific Gravity,Urine 1.002 (1.001-1.035); Squamous Epithelial Cell,Urine 1 /hpf (0-4); Urobilinogen,Urine <2.0 mg/dL (<2.0); WBC,Urine 93 /hpf (0-5)
--- NOTE | 2017-10-31 13:28 | ED ---
Female Urogenital HPI - General Chief complaint: Urogenital Stated complaint: Female Time Seen by Provider: 10/31/17 13:10 Source: patient Mode of arrival: wheelchair Limitations: no limitations - History of Present Illness Initial comments: Patient is a 62-year-old woman who presents with the complaint that she believes she is having a urinary tract infection. The patient states that since a little after 8 AM today she has had some burning suprapubic pain with occasional sharp spasms. She also has been feeling like she has to urinate frequently. She states that the last couple of times she has urinated she believes there was a trace of blood. She denies any other symptoms or any systemic symptoms. MD Complaint: dysuria, pelvic pain -: hour(s) Location: suprapubic Radiation: non-radiating Severity: severe Quality: sharp, burning Consistency: constant Improves with: none Worsens with: urination - Related Data Home Medications Medication Instructions Recorded Confirmed ALPRAZolam [Xanax] 0.5 mg PO HS 06/24/17 08/11/17 Lisinopril-Hctz 10-12.5 mg 1 tab PO DAILY 06/24/17 08/11/17 [Zestoretic 10-12.5] Aspirin 325 mg PO DAILY 07/15/17 08/11/17 Multivitamins, Thera [Multivitamin 1 tab PO DAILY 07/15/17 08/11/17 (formulary)] Omeprazole Magnesium [PriLOSEC OTC] 20 mg PO QAM 07/15/17 08/11/17 Previous Rx's Medication Instructions Recorded HYDROcodone/APAP 5-325MG [[place] 1 tab PO Q6HR PRN #12 tab 08/11/17 5-325] Phenazopyridine [Pyridium] 100 mg PO TID #6 tablet 10/31/17 Sulfamethox-Tmp 800-160Mg [Bactrim 1 each PO Q12HR #6 tab 10/31/17 Ds] Allergies Allergy/AdvReac Type Severity Reaction Status Date / Time acetaminophen [From Vicodin] Allergy Hallucinati Verified 10/31/17 13:07 ons/vomitin g codeine Allergy Unknown Verified 10/31/17 13:07 Egg Derived Allergy Anaphylaxis Verified 10/31/17 13:07 hydrocodone [From Vicodin] Allergy Hallucinati Verified 10/31/17 13:07 ons ibuprofen [From Motrin] Allergy swelling/An Verified 10/31/17 13:07 aphylaxis morphine Allergy Severe Verified 10/31/17 13:07 Vomiting Review of Systems ROS Statement: Those systems with pertinent positive or pertinent negative responses have been documented in the HPI. ROS Other: All systems not noted in ROS Statement are negative. Constitutional: Denies: fever, chills Respiratory: Denies: cough, dyspnea Cardiovascular: Denies: chest pain, palpitations Gastrointestinal: Reports: abdominal pain. Denies: nausea, vomiting, diarrhea, constipation Genitourinary: Reports: urgency, dysuria, frequency, hematuria Musculoskeletal: Denies: back pain Skin: Denies: rash Neurological: Denies: headache Past Medical History Past Medical History: Fibromyalgia, GERD/Reflux, Hypertension, Osteoarthritis ( OA), Rheumatoid Arthritis (RA) Additional Past Medical History / Comment(s): hx migraines, palpitations, aldair parkinson white syndrom, hiatal hernia, hx ulcer, IBS, hx anemia, hx varicose veins History of Any Multi-Drug Resistant Organisms: None Reported Past Surgical History: Appendectomy, Section, Cholecystectomy, Hernia Repair, Hysterectomy, Orthopedic Surgery, Tubal Ligation Additional Past Surgical History / Comment(s): rt knee arthroscopy x 2, left knee arthroscopy, surgery on rt great toe, varicose vein surgery rt leg, rt shoulder surgery, rt hand surgery, diaphragm surgery Past Anesthesia/Blood Transfusion Reactions: Postoperative Nausea & Vomiting ( PONV) Additional Past Anesthesia/Blood Transfusion Reaction / Comment(s): took a long time to come out after cholecystectomy Past Psychological History: No Psychological Hx Reported Smoking Status: Former smoker Past Alcohol Use History: Rare Past Drug Use History: None Reported - Past Family History Father Family Medical History: Cancer Additional Family Medical History / Comment(s): liver General Exam Limitations: no limitations General appearance: alert, in no apparent distress Head exam: Present: atraumatic, normocephalic Respiratory exam: Present: normal lung sounds bilaterally. Absent: respiratory distress, wheezes, rales, rhonchi, stridor Cardiovascular Exam: Present: regular rate, normal rhythm, normal heart sounds. Absent: systolic murmur, diastolic murmur, rubs, gallop GI/Abdominal exam: Present: soft, tenderness (Mild suprapubic tenderness). Absent: distended, guarding, rebound, rigid, mass, pulsatile mass, hernia Extremities exam: Absent: pedal edema Back exam: Present: normal inspection. Absent: CVA tenderness (R), CVA tenderness (L) Skin exam: Present: warm, dry, intact, normal color. Absent: rash Course Vital Signs 10/31/17 13:02 Temperature 98.1 F Pulse Rate 71 Respiratory 18 Rate Blood Pressure 203/95 O2 Sat by Pulse 98 Oximetry Medical Decision Making - Lab Data Lab Results 10/31/17 Range/Units 13:10 Urine Color Light Yellow Urine Appearance Cloudy H (Clear) Urine pH 8.0 (5.0-8.0) Ur Specific [place] 1.002 (1.001-1.035) Urine Protein Trace H (Negative) Urine Glucose (UA) Negative (Negative) Urine Ketones Negative (Negative) Urine Blood Moderate H (Negative) Urine Nitrite Negative (Negative) Urine Bilirubin Negative (Negative) Urine Urobilinogen <2.0 (<2.0) mg/dL Ur Leukocyte Esterase Large H (Negative) Urine WBC 93 H (0-5) /hpf Urine WBC Clumps Few H (None) /hpf Ur Squamous Epith Cells 1 (0-4) /hpf Urine Bacteria Few H (None) /hpf Urine Yeast (Budding) Occasional H (None) /hpf Disposition Clinical Impression: Urinary tract infection, Hypertension Disposition: HOME SELF-CARE Condition: Good Instructions: Urinary Tract Infection in Women (ED) Prescriptions: Phenazopyridine [Pyridium] 100 mg PO TID #6 tablet Sulfamethox-Tmp 800-160Mg [Bactrim Ds] 1 each PO Q12HR #6 tab Is patient prescribed a controlled substance at d/c from ED?: No Referrals: Nakul Giordano DO [Primary Care Provider] - 1-2 days
[2017-10-31] MEDS ORDERED: PHENAZOPYRIDINE 100 MG TAB PO STA (13:43)
[2017-10-31] MEDS ORDERED: SULFAMETHOX-TMP 800-160MG 1 EACH TAB PO STA (13:43)
== END 2017-10-31 13:52 | disposition home or self-care (01) ==
LOC: EC 12:42
DX: N39.0 Urinary tract infection, site not specified (principal); I10 Essential (primary) hypertension; K21.9 Gastro-esophageal reflux disease without esophagitis; Z90.49 Acquired absence of other specified parts of digestive tract; Z88.5 Allergy status to narcotic agent; Z88.6 Allergy status to analgesic agent; Z91.012 Allergy to eggs; Z79.82 Long term (current) use of aspirin; Z79.899 Other long term (current) drug therapy; Z87.891 Personal history of nicotine dependence
CPT/HCPCS: 81001; 87077; 87086; 87186; 99284

== ENCOUNTER → 2017-12-16 | Outpatient (CLI) | payer MEDICARE, OTHER ==
--- NOTE | 2017-12-20 10:05 | MM ---
Reason for exam: screening (asymptomatic). Last mammogram was performed 7 years and 5 months ago. History: Patient is postmenopausal. Took hormonal contraceptives for 7 years. Physical Findings: A clinical breast exam by your physician is recommended on an annual basis and results should be correlated with mammographic findings. MG 3D Screening Mammo W/Cad Bilateral CC and MLO view(s) were taken. Prior study comparison: July 24, 2010, bilateral digital screening mammo w/CAD. March 14, 2008, bilateral diagnostic digital mammog. The breast tissue is heterogeneously dense. This may lower the sensitivity of mammography. There is chronic nodularity in the right breast. A couple asymmetric densities on the left do not persist on 3D images. No significant changes when compared with prior studies. ASSESSMENT: Negative, BI-RAD 1 RECOMMENDATION: Routine screening mammogram of both breasts in 1 year.
== END | disposition home or self-care (01) ==
LOC: RADMAMWWP 09:48
PROVIDERS: ATTEND Family Medicine
DX: Z12.31 Encounter for screening mammogram for malignant neoplasm of breast (principal)
CPT/HCPCS: 77063; 77067

== ENCOUNTER → 2018-03-08 | Outpatient (CLI) | payer MEDICARE, OTHER ==
[2018-03-08 11:04] LABS: HCT 46.3 % (34.0-46.0); HGB 15.9 gm/dL (11.4-16.0); MCH 30.9 pg (25.0-35.0); MCHC 34.3 g/dL (31.0-37.0); MCV 89.9 fL (80.0-100.0); Mean Platelet Volume 7.6; Platelet Count 189 k/uL (150-450); RBC 5.15 m/uL (3.80-5.40); RDW 13.4 % (11.5-15.5)
[2018-03-08 11:46] LABS: ALT 32 U/L (9-52); AST 21 U/L (14-36); Albumin 4.2 g/dL (3.5-5.0); Alkaline Phosphatase 78 U/L (38-126); Anion Gap 7 mmol/L; Blood Urea Nitrogen 12 mg/dL (7-17); Calcium 9.4 mg/dL (8.4-10.2); Carbon Dioxide 28 mmol/L (22-30); Chloride 107 mmol/L (98-107); Glucose 105 mg/dL (74-99); Potassium 4.4 mmol/L (3.5-5.1); Sodium 142 mmol/L (137-145); Total Bilirubin 0.6 mg/dL (0.2-1.3); Total Protein 6.9 g/dL (6.3-8.2)
[2018-03-08 18:02] LABS: Gliadin AB IgA, Unit 0.7 U/mL
== END | disposition home or self-care (01) ==
LOC: LABWHC1 10:21
PROVIDERS: ATTEND Physician Assistant
DX: R14.0 Abdominal distension (gaseous) (principal)
CPT/HCPCS: 36415; 80053; 83516; 85027

== ENCOUNTER → 2018-05-20 | Outpatient (CLI) | payer MEDICARE, OTHER ==
[2018-05-20 14:47] LABS: Blood Urea Nitrogen 15 mg/dL (7-17)
--- NOTE | 2018-05-20 16:35 | CT ---
EXAMINATION TYPE: CT abdomen pelvis w con DATE OF EXAM: 05/20/2018 HISTORY: abdominal pain, difficulty having bowel movements. Sx hx hiatal hernia repair. CT DLP: 1237.50mGycm Automated Exposure Control for Dose Reduction was Utilized. CONTRAST: CT scan of the abdomen and pelvis is performed with oral and with IV Contrast, patient injected with 100 mL of Isovue 300. COMPARISON: Prior CT abdomen and pelvis August 11, 2017 FINDINGS: LUNG BASES: No significant abnormality is appreciated. LIVER/GB: Cholecystectomy clips are redemonstrated. PANCREAS: No significant abnormality is seen. SPLEEN: No significant abnormality is seen. ADRENALS: No significant abnormality is seen. KIDNEYS: Simple appearing 3.5 cm cyst laterally mid to lower pole level right kidney is redemonstrate d. BOWEL: Surgical changes from hiatal hernia repair surgery just below diaphragm are redemonstrated. No recurrent hiatal hernia is present. Oral contrast reaches level of mid transverse colon. No suspicio us small or large bowel dilatation is present. Slightly redundant sigmoid colon is redemonstrated. Mi ld to moderate prominence of fecal material in right and sigmoid colon is identified. UTERUS/ADNEXA: Uterus is surgically absent or markedly atrophic. LYMPH NODES: No greater than 1cm abdominal or pelvic lymph nodes are appreciated. OSSEOUS STRUCTURES: Moderate multilevel spurring and disc space narrowing is seen most prominent L5-S 1 level. OTHER: Small fat-containing umbilical hernia is redemonstrated axial image 44. There is mild to moder ate calcified plaque of aorta extending into branch vessels. IMPRESSION: No bowel obstruction. No significant change from prior study. Perhaps mild proximal to mi d colonic fecal stasis noted.
== END ==
LOC: RADCTMAIN 13:55
PROVIDERS: ATTEND Family Medicine
DX: R10.9 Unspecified abdominal pain (principal)
CPT/HCPCS: 82565; 84520; 74177; Q9967 ×2

== ENCOUNTER → 2020-10-08 | Outpatient (CLI) | payer MEDICARE, OTHER ==
--- NOTE | 2020-10-08 20:19 | XR ---
EXAMINATION TYPE: XR hand complete LT DATE OF EXAM: 10/08/2020 CLINICAL HISTORY: Left hand pain after heavy pie plate fell onto hand. Pain at first and second metac arpals. TECHNIQUE: Frontal, lateral and oblique images of the left hand are obtained. COMPARISON: None. FINDINGS: There is no acute fracture or dislocation of the left hand. There is extensive degenerative change involving the carpometacarpal joints, interphalangeal joints, and metacarpal head. No signifi cant soft tissue swelling. IMPRESSION: There is no acute fracture or dislocation in the left hand.
== END | disposition home or self-care (01) ==
LOC: RADXRMAIN 17:35
PROVIDERS: ATTEND Family Medicine
DX: M79.642 Pain in left hand (principal)

== ENCOUNTER → 2022-05-21 | Outpatient (CLI) | payer MEDICARE, OTHER ==
--- NOTE | 2022-05-22 18:23 | MM ---
Reason for Exam: Screening (asymptomatic). Last mammogram was performed 4 year(s) and 6 month(s) ago. Patient History: Menarche at age 8. First Full-Term at age 19. Hysterectomy at age 31. Postmenopausal. Patient has history of breast feeding. Patient used Hormonal Contraceptives for 7 years. Risk Values: Tracy 5 year model risk: 1.7%. NCI Lifetime model risk: 5.2%. Prior Study Comparison: 03/14/2008 Bilateral Diagnostic Mammogram, [facility]. 07/24/2010 Bilateral Screening Mammogram, [facility]. 12/16/2017 Bilateral Screening Mammogram, [facility]. Tissue Density: There are scattered fibroglandular densities. Findings: Analyzed By CAD. Chronic low density nodularity central right cc view. Asymmetric density anterior superior left MLO view does not persist on 3-D images. No significant change from prior exams. Overall Assessment: Benign, BI-RAD 2 Management: Screening Mammogram of both breasts in 1 year. 1. Patient should continue monthly self breast exams. 2. A clinical breast exam by your physician is recommended on an annual basis. 3. This exam should not preclude additional follow-up of suspicious palpable abnormalities. Electronically signed and approved by: Anamaria Rojo M.D. Radiologist
== END | disposition home or self-care (01) ==
LOC: RADMAMWWP 14:42
PROVIDERS: ATTEND Family Medicine
DX: Z12.31 Encounter for screening mammogram for malignant neoplasm of breast (principal); Z78.0 Asymptomatic menopausal state
CPT/HCPCS: 77063; 77067

== ENCOUNTER 2022-11-11 10:10 | Emergency (ER) | payer MEDICARE, OTHER ==
[2022-11-11 10:21] VITALS: RESP 18; TEMP 96.7
[2022-11-11] MEDS ORDERED: SODIUM CHLORIDE 0.9% 1,000 ML IV STA (10:46)
[2022-11-11] MEDS ORDERED: ONDANSETRON 4 MG/2 ML VIAL IVP STA (10:46)
--- NOTE | 2022-11-11 11:03 | ED ---
General Adult HPI - General Chief complaint: Dizziness Stated complaint: Dizziness, nausea Time Seen by Provider: 11/11/22 10:30 Source: patient, EMS, RN notes reviewed Mode of arrival: EMS Limitations: no limitations - History of Present Illness Initial comments: Patient is a 67-year-old female presenting to the emergency room via EMS with complaints of severe dizziness with nausea. She reports symptoms began around 6:00 this morning. She reports that her nausea and dizziness is severe with any head movement regardless of eyes opening or closing. She denies that the room is spinning and reports the symptom feels as though her vision is blurry and then darkening when the symptoms occur. She reports a near syncopal event but denies any loss of consciousness. She reports that due to her dizziness ambulating is very difficult. She denies any previous symptoms similar to these before. She denies any chest pain, shortness of breath, abdominal pain, headache, neck pain, ear pain, tinnitus, cough, congestion, focal weakness, confusion, fevers or chills. She has a history of migraines but reports that her symptoms are not similar to her migraines. She also has a past medical history significant for fibromyalgia, GERD, rheumatoid/osteoarthritis, WPW syndrome and varicose veins. - Related Data Home Medications Medication Instructions Recorded Confirmed ALPRAZolam [Xanax] 0.5 mg PO HS 06/24/17 11/11/22 Aspirin 325 mg PO W/LUNCH 07/15/17 11/11/22 Multivitamins, Thera [Multivitamin 1 tab PO DAILY 07/15/17 11/11/22 (formulary)] ALPRAZolam [Xanax] 0.5 mg PO DAILY PRN 11/11/22 11/11/22 Atorvastatin [Lipitor] 10 mg PO HS 11/11/22 11/11/22 Cyclobenzaprine [Flexeril] 10 mg PO DAILY PRN 11/11/22 11/11/22 Cyclobenzaprine [Flexeril] 10 mg PO HS 11/11/22 11/11/22 amLODIPine BESYLATE/BENAZEPRIL 1 cap PO DAILY 11/11/22 11/11/22 [Lotrel 5-20 mg Capsule] Previous Rx's Medication Instructions Recorded Meclizine HCl 25 mg PO Q8H PRN 7 Days #21 tablet 05/24/23 Ondansetron Odt [Zofran Odt] 8 mg PO Q8HR PRN 7 Days #21 tab 11/11/22 Allergies Allergy/AdvReac Type Severity Reaction Status Date / Time acetaminophen [From Vicodin] Allergy Hallucinati Verified 11/11/22 13:37 ons/vomitin g codeine Allergy Unknown Verified 11/11/22 13:37 Egg Derived Allergy Anaphylaxis Verified 11/11/22 13:37 hydrocodone [From Vicodin] Allergy Hallucinati Verified 11/11/22 13:37 ons ibuprofen [From Motrin] Allergy swelling/An Verified 11/11/22 13:37 aphylaxis morphine Allergy Severe Verified 11/11/22 13:37 Vomiting Review of Systems ROS Statement: Those systems with pertinent positive or pertinent negative responses have been documented in the HPI. ROS Other: All systems not noted in ROS Statement are negative. Past Medical History Past Medical History: Fibromyalgia, GERD/Reflux, Hypertension, Osteoarthritis (OA), Rheumatoid Arthritis (RA) Additional Past Medical History / Comment(s): hx migraines, palpitations, aldair parkinson white syndrom, hiatal hernia, hx ulcer, IBS, hx anemia, hx varicose veins History of Any Multi-Drug Resistant Organisms: None Reported Past Surgical History: Appendectomy, Section, Cholecystectomy, Hernia Repair, Hysterectomy, Orthopedic Surgery, Tubal Ligation Additional Past Surgical History / Comment(s): rt knee arthroscopy x 2, left knee arthroscopy, surgery on rt great toe, varicose vein surgery rt leg, rt shoulder surgery, rt hand surgery, diaphragm surgery Past Anesthesia/Blood Transfusion Reactions: Postoperative Nausea & Vomiting (PONV) Additional Past Anesthesia/Blood Transfusion Reaction / Comment(s): took a long time to come out after cholecystectomy Past Psychological History: No Psychological Hx Reported Smoking Status: Former smoker Past Alcohol Use History: Rare Past Drug Use History: None Reported - Past Family History Father Family Medical History: Cancer Additional Family Medical History / Comment(s): liver General Exam Limitations: no limitations General appearance: alert, in no apparent distress Head exam: Present: atraumatic, normocephalic, normal inspection Eye exam: Present: normal appearance, PERRL, EOMI. Absent: scleral icterus, conjunctival injection, nystagmus (Slight bilateral with movement but no overt nystagmus), periorbital swelling ENT exam: Present: normal exam, mucous membranes moist, TM's normal bilaterally, normal external ear exam Neck exam: Present: normal inspection. Absent: tenderness, meningismus, lymphadenopathy Respiratory exam: Present: normal lung sounds bilaterally. Absent: respiratory distress, wheezes, rales, rhonchi, stridor Cardiovascular Exam: Present: regular rate, normal rhythm, normal heart sounds. Absent: systolic murmur, diastolic murmur, rubs, gallop, clicks GI/Abdominal exam: Present: soft, normal bowel sounds. Absent: distended, tenderness, guarding, rebound, rigid Extremities exam: Present: normal inspection, other (Bilateral knee range of motion impairment due to injury with kinetic tape intact.). Absent: pedal edema, joint swelling Back exam: Present: normal inspection Neurological exam: Present: alert, oriented X3, CN II-XII intact Expanded Speech: Present: fluid speech Cerebellar function: Heel to Mcfadden: Normal (Difficult due to pain in knee.) Bladimir Total: 15 Psychiatric exam: Present: normal affect, normal mood Skin exam: Present: warm, dry, intact, normal color. Absent: rash Course Vital Signs 11/11/22 11/11/22 11/11/22 10:18 13:52 14:12 Temperature 96.7 F L Pulse Rate 67 90 Pulse Rate [ 81 Sitting] Pulse Rate [ 80 Standing] Pulse Rate [ 79 Supine] Respiratory 18 18 Rate Blood Pressure 195/90 172/93 Blood Pressure 196/126 [Right Arm Sitting] Blood Pressure 189/129 [Right Arm Standing] Blood Pressure 184/107 [Right Arm Supine] O2 Sat by Pulse 100 99 Oximetry Medical Decision Making - Medical Decision Making Was pt. sent in by a medical professional or institution ([facility], [facility], urgent care, hospital, or skilled nursing...) When possible be specific @ -No Did you speak to anyone other than the patient for history (EMS, parent, family, police, friend...)? What history was obtained from this source @ -No Did you review nursing and triage notes (agree or disagree)? Why? @ -I reviewed and agree with nursing and triage notes Were old charts reviewed (outside hosp., previous admission, EMS record, old EKG, old radiological studies, urgent care reports/EKG's, skilled nursing records)? Report findings @ -No old charts were reviewed Differential Diagnosis (chest pain, altered mental status, abdominal pain women, abdominal pain men, vaginal bleeding, weakness, fever, dyspnea, syncope, headache, dizziness, GI bleed, back pain, seizure, CVA, palpatations, mental health, musculoskeletal)? @ -Differential Dizziness: Benign paroxysmal positional Vertigo, Menieres disease, otitis media, acoustic neuroma, vertebrobasilar insufficiency, cerebellar stroke, encephalitis, hypovolemic, arrhythmia, coronary artery syndrome, anemia, this is not meant to be an all-inclusive list EKG interpreted by me (3pts min.). @ -Sinus rhythm, ventricular rate 66 bpm, VA interval 172 ms, QRS duration 91 ms, QT/QTC 461/474 ms, PRT axes -10, -23, -9 X-rays interpreted by me (1pt min.). @ -None done CT interpreted by me (1pt min.). @ -CT brain without contrast: No intracranial hemorrhage, mass or shift. Cerebral atrophy noted. U/S interpreted by me (1pt. min.). @ -None done What testing was considered but not performed or refused? (CT, X-rays, U/S, labs)? Why? @ -None What meds were considered but not given or refused? Why? @ -None Did you discuss the management of the patient with other professionals (professionals i.e. , PA, [facility], lab, RT, psych nurse, nephrology social worker, news videographer, teacher, licensed loan officer assistant, protective services case worker)? Give summary @ -No Was smoking cessation discussed for >3mins.? @ -No Was critical care preformed (if so, how long)? @ -No Were there social determinants of health that impacted care today? How? (Homelessness, low income, unemployed, alcoholism, drug addiction, transp ortation, low edu. Level, literacy, decrease access to med. care, long term, rehab)? @ -No Was there de-escalation of care discussed even if they declined (Discuss DNR or withdrawal of care, Hospice)? DNR status @ -No What co-morbidities impacted this encounter? (DM, HTN, Smoking, COPD, CAD, Cancer, CVA, ARF, Chemo, Hep., AIDS, mental health diagnosis, sleep apnea, morbid obesity)? @ -None Was patient admitted / discharged? Hospital course, mention meds given and route, prescriptions, significant lab abnormalities, going to OR and other pertinent info. @ -67-year-old female presenting to the emergency room via EMS with complaints of severe dizziness with nausea. She reports symptoms began around 6:00 this morning. She reports that her nausea and dizziness is severe with any head movement regardless of eyes opening or closing. She denies that the room is spinning and reports the symptom feels as though her vision is blurry and then darkening when the symptoms occur. She reports a near syncopal event but denies any loss of consciousness. Will give 1 L fluid bolus and Zofran for nausea. Will start dizziness workup with EKG, CBC, CMP, troponin and viral swabbing for COVID, RSV and influenza. In the setting of severe dizziness and hypertension wi ll obtain CT of the brain as well. Laboratory studies reveal low platelet count of 120 with previous thrombocytopenia, no other abnormalities on CBC. CMP shows elevated glucose 140 no other abnormalities. Troponin negative. Swabing for COVID, RSV and influenza negative. CT of the brain demonstrates acute intracranial process. EKG demonstrates sinus rhythm, ventricular rate 67, VA interval 150 ms, QRS duration 80 ms, QT/QTC 451/474 ms, PRT axis -10, -23, -9. 1L IV fluids and Zofran. Still with some dizziness but nausea improved meclizine given. Orthostatics negative. Hypertension noted will give hydralazine. No indication for further diagnostic imaging or admission. Blood pressure improved with IV hydralazine. Findings discussed with patient. Will provide meclizine and Zofran for discharge for symptomatic management of vertigo. Advised changing positions slowly and following up with primary care provider. Will discharge home in stable condition on symptomatic management of meclizine a nd Zofran for vertigo advising follow-up with primary care provider. Undiagnosed new problem with uncertain prognosis? @ -No Drug Therapy requiring intensive monitoring for toxicity (Heparin, Nitro, Insulin, Cardizem)? @ -No Were any procedures done? @ -No Diagnosis/symptom? @ -Vertigo Acute, or Chronic, or Acute on Chronic? @ -Acute Uncomplicated (without systemic symptoms) or Complicated (systemic symptoms)? @ -Uncomplicated Side effects of treatment? @ -No Exacerbation, Progression, or Severe Exacerbation? @ -No Poses a threat to life or bodily function? How? (Chest pain, [place], NE, pneumonia, PE, COPD, DKA, ARF, appy, cholecystitis, CVA, Diverticulitis, Homicidal, Rubio icidal, threat to staff... and all critical care pts) @ -No Case discussed with Dr. Melton. - Lab Data Result diagrams: 11/11/22 11:09 11/11/22 11:09 Lab Results 11/11/22 11/11/22 11/11/22 Range/Units 11:09 11:09 11:09 WBC 4.8 (3.8-10.6) k/uL RBC 4.28 (3.80-5.40) m/uL Hgb 13.4 (11.4-16.0) gm/dL Hct 39.2 (34.0-46.0) % MCV 91.5 (80.0-100.0) fL MCH 31.2 (25.0-35.0) pg MCHC 34.1 (31.0-37.0) g/dL RDW 13.3 (11.5-15.5) % Plt Count 120 L (150-450) k/uL MPV 8.9 Neutrophils % 67 % Lymphocytes % 23 % Monocytes % 7 % Eosinophils % 1 % Basophils % 1 % Neutrophils # 3.2 (1.3-7.7) k/uL Lymphocytes # 1.1 (1.0-4.8) k/uL Monocytes # 0.3 (0-1.0) k/uL Eosinophils # 0.0 (0-0.7) k/uL Basophils # 0.0 (0-0.2) k/uL Sodium 139 (137-145) mmol/L Potassium 4.4 (3.5-5.1) mmol/L Chloride 106 (98-107) mmol/L Carbon Dioxide 25 (22-30) mmol/L Anion Gap 8 mmol/L BUN 16 (7-17) mg/dL Creatinine 0.55 (0.52-1.04) mg/dL Est GFR (CKD-EPI)AfAm >90 (>60 ml/min/1.73 sqM) Est GFR (CKD-EPI)NonAf >90 (>60 ml/min/1.73 sqM) Glucose 140 H (74-99) mg/dL Calcium 8.8 (8.4-10.2) mg/dL Total Bilirubin 0.6 (0.2-1.3) mg/dL AST 29 (14-36) U/L ALT 22 (4-34) U/L Alkaline Phosphatase 74 (38-126) U/L Troponin I <0.012 (0.000-0.034) ng/mL Total Protein 6.4 (6.3-8.2) g/dL Albumin 4.0 (3.5-5.0) g/dL Influenza Type A (PCR) (Not Detectd) Influenza Type B (PCR) (Not Detectd) RSV (PCR) (Not Detectd) SARS-CoV-2 (PCR) (Not Detectd) 11/11/22 Range/Units 11:55 WBC (3.8-10.6) k/uL RBC (3.80-5.40) m/uL Hgb (11.4-16.0) gm/dL Hct (34.0-46.0) % MCV (80.0-100.0) fL MCH (25.0-35.0) pg MCHC (31.0-37.0) g/dL RDW (11.5-15.5) % Plt Count (150-450) k/uL MPV Neutrophils % % Lymphocytes % % Monocytes % % Eosinophils % % Basophils % % Neutrophils # (1.3-7.7) k/uL Lymphocytes # (1.0-4.8) k/uL Monocytes # (0-1.0) k/uL Eosinophils # (0-0.7) k/uL Basophils # (0-0.2) k/uL Sodium (137-145) mmol/L Potassium (3.5-5.1) mmol/L Chloride (98-107) mmol/L Carbon Dioxide (22-30) mmol/L Anion Gap mmol/L BUN (7-17) mg/dL Creatinine (0.52-1.04) mg/dL Est GFR (CKD-EPI)AfAm (>60 ml/min/1.73 sqM) Est GFR (CKD-EPI)NonAf (>60 ml/min/1.73 sqM) Glucose (74-99) mg/dL Calcium (8.4-10.2) mg/dL Total Bilirubin (0.2-1.3) mg/dL AST (14-36) U/L ALT (4-34) U/L Alkaline Phosphatase (38-126) U/L Troponin I (0.000-0.034) ng/mL Total Protein (6.3-8.2) g/dL Albumin (3.5-5.0) g/dL Influenza Type A (PCR) Not Detected (Not Detectd) Influenza Type B (PCR) Not Detected (Not Detectd) RSV (PCR) Not Detected (Not Detectd) SARS-CoV-2 (PCR) Not Detected (Not Detectd) - Radiology Data Radiology results: report reviewed, image reviewed Disposition Clinical Impression: Vertigo Disposition: HOME SELF-CARE Condition: Stable Instructions (If sedation given, give patient instructions): Vertigo (ED) Additional Instructions: Utilize meclizine as needed for dizziness. Utilize Zofran as needed for nausea and vomiting. Change positions slowly. Do not dive or operate machinery until your dizziness is resolved. Please follow-up with your primary care provider. Please return to the Emergency Department if symptoms worsen or any other concerns. Prescriptions: Meclizine HCl 25 mg PO Q8H PRN 7 Days #21 tablet PRN Reason: Nausea/Anxiety Ondansetron Odt [Zofran Odt] 8 mg PO Q8HR PRN 7 Days #21 tab PRN Reason: Nausea And Vomiting Is patient prescribed a controlled substance at d/c from ED?: No Referrals: Nakul Giordano DO [Primary Care Provider] - 1-2 days Time of Disposition: 14:15
[2022-11-11 11:24] LABS: ALT 22 U/L (4-34); African American GFR (CKD) >90 (>60 ml/min/1.73 sqM); Anion Gap 8 mmol/L; Blood Urea Nitrogen 16 mg/dL (7-17); Calcium 8.8 mg/dL (8.4-10.2); Carbon Dioxide 25 mmol/L (22-30); Chloride 106 mmol/L (98-107); Glucose 140 mg/dL (74-99); Non-African American GFR(CKD) >90 (>60 ml/min/1.73 sqM); Sodium 139 mmol/L (137-145); Total Bilirubin 0.6 mg/dL (0.2-1.3); Total Protein 6.4 g/dL (6.3-8.2)
[2022-11-11 11:25] LABS: AST 29 U/L (14-36); Alkaline Phosphatase 74 U/L (38-126); Potassium 4.4 mmol/L (3.5-5.1)
[2022-11-11 11:40] LABS: Basophils % (A) 1 %; Eosinophils % (A) 1 %; HCT 39.2 % (34.0-46.0); HGB 13.4 gm/dL (11.4-16.0); Lymphocytes # (A) 1.1 k/uL (1.0-4.8); Lymphocytes % (A) 23 %; MCH 31.2 pg (25.0-35.0); MCHC 34.1 g/dL (31.0-37.0); MCV 91.5 fL (80.0-100.0); Mean Platelet Volume 8.9; Monocytes # (A) 0.3 k/uL (0-1.0); Monocytes % (A) 7 %; Neutrophils # (A) 3.2 k/uL (1.3-7.7); Neutrophils % (A) 67 %; Platelet Count 120 k/uL (150-450); RBC 4.28 m/uL (3.80-5.40); RDW 13.3 % (11.5-15.5); WBC 4.8 k/uL (3.8-10.6)
--- NOTE | 2022-11-11 11:49 | CT ---
EXAMINATION TYPE: CT brain wo con DATE OF EXAM: 11/11/2022 HISTORY: Dizziness with HTN CT DLP: 1099.8 mGycm. Automated Exposure Control for Dose Reduction was Utilized. TECHNIQUE: CT scan of the head is performed without contrast. COMPARISON: CT brain July 30, 2022. FINDINGS: There is no acute intracranial hemorrhage or midline shift identified. There is mild to m oderate diffuse ventricular and sulcal prominence redemonstrated. There is moderate to advanced low- attenuation in the deep and periventricular white matter redemonstrated. Nasal septum is deviated to left of midline. There is mucous retention cyst or polyp in the posterior right ethmoid sinus axial image 19 redemonstrated. No suspicious opacification of the mastoid air cells. IMPRESSION: No acute intracranial hemorrhage or midline shift. There is mild to moderate diffuse c erebral atrophy and moderate to advanced probable chronic small vessel ischemic change redemonstrated . No significant change from recent prior CT.
[2022-11-11] MEDS ORDERED: MECLIZINE 12.5 MG TAB PO STA (12:03)
[2022-11-11] MEDS ORDERED: hydrALAZINE HCL 20 MG/ML 1 ML VIAL IVP STA (13:18)
[2022-11-11 14:13] VITALS: BP 172/93; PULSE 90
== END 2022-11-11 14:32 | disposition home or self-care (01) ==
LOC: EC 10:10
DX: R42 Dizziness and giddiness (principal); K21.9 Gastro-esophageal reflux disease without esophagitis; I10 Essential (primary) hypertension; M19.90 Unspecified osteoarthritis, unspecified site; M06.9 Rheumatoid arthritis, unspecified; Z87.891 Personal history of nicotine dependence; Z88.5 Allergy status to narcotic agent; Z88.6 Allergy status to analgesic agent; Z88.8 Allergy status to other drugs, medicaments and biological substances; Z79.82 Long term (current) use of aspirin; Z79.899 Other long term (current) drug therapy; Z20.822 Contact with and (suspected) exposure to COVID-19
CPT/HCPCS: 36415; 93005; 80053; 84484; 85025; 87636; 70450; 99285; 96374; 96375; 96361; J0360; J2405

== ENCOUNTER → 2022-12-24 | Outpatient (CLI) | payer MEDICARE, OTHER ==
[2022-12-24 13:53] LABS: Prothrombin Time 10.3 sec (9.0-12.0)
[2022-12-24 16:32] LABS: HCT 43.7 % (37.2-46.3); HGB 14.8 d/dL (12.0-15.0); MCH 31.8 pg (27.0-32.0); MCHC 33.9 d/dL (32.0-37.0); MCV 93.8 FL (80.0-97.0); NRBC Per 100 WBC 0 X 10*3/uL (0.00-0.01); Platelet Count 249 X 10*3/uL (140-440); RBC 4.66 X 10*6/uL (4.10-5.20); RDW 12.6 % (11.5-14.5); WBC 8.79 X 10*3/uL (4.50-10.00)
[2022-12-24 18:48] LABS: Appearance,Urine Clear (Clear); Bilirubin,Urine Negative (Negative); Blood,Urine Negative (Negative); Color,Urine Yellow (Yellow); Ketones,Urine Negative (Negative); Nitrite,Urine Negative (Negative); PH, Urine 6.5; Specific Gravity,Urine 1.013 (1.001-1.030); Urobilinogen,Urine 0.2 E.U./DL
[2022-12-24 21:29] LABS: ALT 24 U/L (8-44); AST 13 U/L (13-35); Albumin 4.5 d/dL (3.8-4.9); Albumin/Globulin Ratio 2.14 Ratio (1.60-3.17); Alkaline Phosphatase 99 U/L (41-126); BUN/Creat Ratio 26.29 Ratio (12.00-20.00); Blood Urea Nitrogen 18.4 mg/dL (9.0-27.0); Calcium 9.7 mg/dL (8.7-10.3); Carbon Dioxide 25.7 mmol/L (21.6-31.8); Chloride 104 mmol/L (96-109); Globulin 2.1 d/dL (1.6-3.3); Glucose 95 mg/dL (70-110); Potassium 4.1 mmol/L (3.5-5.5); Sodium 142 mmol/L (135-145); Total Bilirubin 0.3 mg/dL (0.3-1.2); Total Protein 6.6 d/dL (6.2-8.2)
[2022-12-24 21:39] LABS: Bacteria,Urine 3+ (None Seen)
== END | disposition home or self-care (01) ==
LOC: LABPAT 12:25
PROVIDERS: ATTEND Orthopaedic Surgery Sports Medicine
DX: Z01.812 Encounter for preprocedural laboratory examination (principal); M17.12 Unilateral primary osteoarthritis, left knee
CPT/HCPCS: 80053; 81001; 85027; 85610; 85730; 87070; 93005

== ENCOUNTER 2023-01-14 07:26 | Observation (INO) | payer MEDICARE, OTHER ==
[2023-01-07 15:59] VITALS: BMI 32.0
[~2023-01-14 07:26] MED LIST changes: +ACETAMINOPHEN TAB 500 MG TAB PO PRN; -DEXAMETHASONE SOD PHOSPHATE 10 MG/ML 1 ML VIAL IV ONE; +GABAPENTIN 300 MG CAP PO PRN; -HEPARIN SODIUM,PORCINE 5,000 UNIT/ML 1 ML VIAL SQ ONE; -HYDROmorphone 0.5 MG/0.5 ML SYRINGE IVP PRN; -MIDAZOLAM 2 MG/2 ML VIAL IV PRN; -ONDANSETRON 4 MG/2 ML VIAL IVP ONE; +ONDANSETRON 4 MG/2 ML VIAL IVP PRN; +Pre Op ABX Message 1 EACH MISC MISCELLANE ONE; +TRANEXAMIC 1,000 MG/100ML-NACL 1,000 MG in SALINE 1 100ML.BAG IVPB PRN; -ceFAZolin IN SWFI 2 GM/20 ML SYRINGE IVP ONE
[2023-01-14] MEDS ORDERED: DEXAMETHASONE SOD PHOSPHATE 4 MG/ML 1 ML VIAL IV ONE (07:52)
[2023-01-14] MEDS ORDERED: LACTATED RINGERS 1,000 ML IV SCH (07:52)
[2023-01-14] MEDS ORDERED: ONDANSETRON 4 MG/2 ML VIAL IVP ONE (07:52)
[2023-01-14] MEDS ORDERED: LACTATED RINGERS 1,000 ML IV ONE ×2 (08:00→13:21)
[2023-01-14] MEDS ORDERED: MIDAZOLAM 2 MG/2 ML VIAL IVP ONE (08:41)
[2023-01-14] MEDS ORDERED: MAGNESIUM HYDROXIDE 2,400 MG/30 ML CUP PO PRN (09:17)
[2023-01-14] MEDS ORDERED: ACETAMINOPHEN TAB 325 MG TAB PO PRN (09:17)
[2023-01-14] MEDS ORDERED: NA PHOS,M-B/NA PHOS,DI-BA 133 ML ENEMA RECTAL PRN (09:17)
[2023-01-14] MEDS ORDERED: bisacodyL 10 MG SUPP RECTAL PRN (09:17)
[2023-01-14] MEDS ORDERED: HYDROmorphone 0.5 MG/0.5 ML SYRINGE IVP PRN ×2 (09:17)
[2023-01-14] MEDS ORDERED: traMADol 50 MG TAB PO PRN (09:17)
[2023-01-14] MEDS ORDERED: NALOXONE 0.4 MG/ML 1 ML VIAL IV PRN (09:17)
[2023-01-14] MEDS ORDERED: HYDROcodone/APAP 7.5-325MG 1 EACH TAB PO PRN (09:21)
[2023-01-14] MEDS ORDERED: PROMETHAZINE 25 MG TAB PO PRN (09:21)
[2023-01-14] MEDS ORDERED: ROPIVACAINE 1,100 MG, SODIUM CHLORIDE 0.9% 500 ML 330 ML, EMPTY PAIN BALL 1 EACH MISCELLANE PRN ×2 (09:47)
--- NOTE | 2023-01-14 09:47 | P.ANPRN ---
Procedure Note - Anesthesia - Nerve Block Performed Left Adductor Canal Infusion Time Out Performed: Yes (0840) Date of Procedure: 01/14/23 Location of Patient: PreOp Indication: Acute Post-Operative Pain, Dx/Pain Location (Left knee), Requested by Surgeon Specifically requested for management of pain by : Endy Goodson Sedation Type: Sedate with meaningful contact maintained Preparation: Sterile Prep, Sterile Dressing Position: Supine Catheter: Indwelling Needle Types: Pajunk Needle Gauge: 18 Ultrasound used to visualize needle placement: Yes Ultrasound used to observe medication spread: Yes Injectate: 0.5% Ropivacaine (see comment for volume) (20 mL +10 mL of normal saline) Blood Aspirated: No Pain Paresthesia on Injection Noted: No Resistance on Injection: Normal Image Stored and Saved: Yes Events: Uneventful and Well Tolerated Left iPack Single Time Out Performed: Yes Date of Procedure: 01/14/23 Location of Patient: PreOp Indication: Acute Post-Operative Pain, Dx/Pain Location (Left knee), Requested by Surgeon Sedation Type: Sedate with meaningful contact maintained Preparation: Sterile Prep Position: Right Lateral Catheter: None Needle Types: Pajunk Needle Gauge: 21 Ultrasound used to visualize needle placement: Yes Ultrasound used to observe medication spread: Yes Injectate: 0.5% Ropivacaine (see comment for volume) (20 mL +10 mL of normal saline) Blood Aspirated: No Pain Paresthesia on Injection Noted: No Resistance on Injection: Normal Image Stored and Saved: Yes Events: Uneventful and Well Tolerated
[2023-01-14] MEDS ORDERED: KETAMINE 10 MG/ML 20 ML VIAL ONE (09:49)
[2023-01-14] MEDS ORDERED: MIDAZOLAM 2 MG/2 ML VIAL ONE (09:49)
[2023-01-14] MEDS ORDERED: diphenhydrAMINE 50 MG/ML 1 ML VIAL ONE (09:49)
[2023-01-14] MEDS ORDERED: PROPOFOL 10 MG/ML 20 ML VIAL IV ONE (09:49)
[2023-01-14] MEDS ORDERED: TRANEXAMIC 1,000 MG/100ML-NACL PREMIX BAG ONE (09:49)
[2023-01-14] MEDS ORDERED: fentaNYL (PF) 50 MCG/ML 2 ML AMP ONE (09:49)
[2023-01-14] MEDS ORDERED: ROPIVACAINE 5 MG/ML 30 ML VIAL ONE (09:49)
[2023-01-14] MEDS ORDERED: SODIUM CHLORIDE 0.9% (PF) 10 ML VIAL ONE (09:49)
[2023-01-14] MEDS ORDERED: ceFAZolin 3,000 MG in SODIUM CHLORIDE 0.9% IRRIGATIO 3,000 ML IRRIGATION ONE (10:31)
[2023-01-14] MEDS: fentaNYL (PF) 50 MCG/ML 2 ML AMP IV PRN ×2 (12:06→12:16)
--- NOTE | 2023-01-14 12:12 | OP ---
OPERATIVE REPORT DATE OF SERVICE : 01/14/2023 CONSULTANTS INTERN: Darrian Blackburn PA-C. PREOPERATIVE DIAGNOSIS: Left knee osteoarthrosis. POSTOPERATIVE DIAGNOSIS: Left knee osteoarthrosis. OPERATION: Left total knee arthroplasty. ANESTHESIA: Spinal with sedation. ESTIMATED BLOOD LOSS: 100 cc. TOURNIQUET TIME: 49 minutes at 250 mmHg. COMPLICATIONS: None apparent. DRAINS: None. DISPOSITION: Postanesthesia care unit. INDICATIONS: Frida is a very pleasant 67-year-old female with longstanding history of left knee pain. History and physical examination are consistent with advanced left knee osteoarthrosis. She has been through significant operative management at this point. Further treatment options were discussed, and she decided to go forward with the left total knee arthroplasty. The risks of procedure were discussed with her in detail. These risks include, but are not limited to, risk of infection, nerve damage, bleeding, pain, and a small risk of deep vein thrombosis which could lead to fatal pulmonary embolism. There is also a small risk of loosening of the implant which could require revision operation. The patient understands these risks. All of her questions were answered to her satisfaction. An appropriate informed consent was obtained. DESCRIPTION OF PROCEDURE: The patient was identified in the preoperative holding area. Surgical site was marked by both the patient and myself. She was given 2 g of Ancef IV for prophylactic purposes. She was then transferred to the operative suite. She was placed supine on the operating table. Spinal anesthetic was then administered and dosed per the Anesthesia Department without apparent complication. Examination under anesthesia was then performed. The patient was 2 to 3 degrees shy of full extension. She had 100 degrees of flexion, and the medial collateral ligament, lateral collateral ligament, and posterior cruciate ligaments were stable. Tourniquet was then placed high on the left upper thigh well-padded in preparation for surgery. The patient's left lower extremity was then prepped and draped in the usual sterile fashion. A standard surgical pause was undertaken to ensure that we were operating the correct site and that appropriate preoperative antibiotics had been given. All staff in the room were in agreement, and we proceeded. The outlines of the patella were marked with a surgical pen. A planned 12 cm vertical incision centered over the patella was marked with a surgical pen. Leg was then exsanguinated with an Esmarch dressing. The knee was then flexed, and tourniquet was inflated to 250 mmHg. The total tourniquet time for the procedure was 49 minutes. Incision was then made with a 10-blade scalpel. Dissection was carried down sharply overlying the fascia. Great care was taken to minimize the skin flaps. The knee was then exposed using a standard medial parapatellar approach. A small cuff of quadriceps tendon was then left for suturing. She was in a bit of varus preoperatively. A standard medial release was then made. Superficial medial collateral ligament was dissected off the bone around to the posterior aspect of the proximal tibia. The medial meniscus was then excised as well. The lateral meniscus was also released anteriorly. The leg was then externally rotated. The patella was everted. The knee was flexed. Retractors were then placed to protect the collateral ligaments. I then proceeded to remove the infrapatellar fat pad. It was excised sharply tangentially with fibers of the patellar tendon. I then proceeded to remove the peripheral osteophytes. This was done with a rongeur. I then proceeded with a distal femoral resection. She did have near full extension. A planned 9 mm resection was then done. The femoral canal was then entered in the midline of the femur approximately 10 mm anterior to the origin of the posterior cruciate ligament. The elissa was then advanced down the center of the femur and placed intramedullary. Based on the preoperative radiographs, the angle between the anatomic and mechanical axis of the femur was approximately 4 to 5 degrees. The valgus angle of the distal femoral cutting guide was then set at 4 degrees for the right knee. The distal femoral cutting guide was then advanced over the intramedullary elissa. This was seated firmly against the femur. I then, as mentioned, planned to take 9 mm off the distal femur. The cutting block was then secured onto the femur with pins. The jig was then removed. The distal femoral cut was made through the slot of the block. The pins were removed. The distal femoral cutting block was removed. The accuracy of the distal femoral cuts was checked with 2 flat bars. I then proceeded with femoral sizing. Posterior referencing sizing guide was held firmly against the resected surface of the femur. The posterior condyles were resting on the posterior plane of the guide. The sizing stylus was then placed on the anterior femur. The size was measured as a size 9. I then assessed for femoral rotation. Plan was for 3 degrees of external rotation. Three degrees of external rotation was placed on the jig. These holes were then marked. I then confirmed the rotation by 3 separate methods. This was done using the epicondylar axis as well as Whitesides line and posterior referencing. It was deemed that the external rotation was proper. I then went forward with placement of the femoral cutting block. This was placed over the previously placed pin holes. The Jake wing was then placed on the anterior slots to ensure that we would not notch the anterior femur with the anterior femoral cut. I then proceeded with the anterior femoral cut. This was flush with the anterior cortex of the femur. The posterior cuts were then made followed by the anterior chamfer cut and then the posterior chamfer cut. The cutting block was then removed. Throughout the resection, the collateral ligaments were protected with retractors. I then placed a trial size 9 femur slightly wide but the narrow fit very well and fit flush with the distal end of the femur. The drill hole was then made. I then proceeded with the tibial cut. Planned for cruciate-retaining knee. The guide was placed and set for varus and valgus and for slope. The height was set for approximately 2 mm resection from the medial tibial plateau which was the lower side. I was happy the alignment and the amount of resection. The cutting block was then pinned to the proximal tibia. The alignment elissa was removed, and the proximal tibia was resected with a reciprocating saw. Again, this was done with retractors protecting the collateral ligaments as well as the posterior cruciate ligament. I then proceeded to evaluate the flexion and extension gaps. A 10 mm block was then placed. The flexion and extension gaps were equal. I then proceeded with resection of the posterior osteophytes. She had mild posterior osteophytes. This was done using a curved osteotome. This resected the posterior osteophytes, and the posterior capsular stripping was done off the posterior aspect of the femur at this time. The osteophytes were then removed. I then proceeded with resection of the patella. The thickness of patella was measured using the caliper. The thickness was 25 mm. The thickness of the anticipated patellar dome was taken into account. Resection was then performed and confirmed to be equal in 4 quadrants using a caliper. Approximately 14 mm of bone remained after resection. A 29 x 8 standard patellar trial was then placed. The holes were drilled, and a trial was then placed. I then proceeded with sizing tibial plate. A size E tibial plate fit very nicely. I then placed the trial femur, the tibial tray, and the patellar button. A 10 mm trial tibial insert was also placed into the knee. The components fit very nicely. She had full extension and flexion. The extension and flexion gaps were equal and stable to both varus and valgus stress. The patella tracked appropriately. The tibial tray rotation was then marked with a Bovie. This was externally rotated properly. I then proceeded with tibial preparation. I first drilled the femoral holes and removed the femoral component. The tibial tray was then set for proper external rotation as well as medial and lateral placement onto the tibia. It was then pinned into place. I then proceeded with punching the keel. I then decided to proceed with cementing of all of our components. The knee was thoroughly irrigated with sterile saline solution via pulse lavage. The lateral geniculate artery was identified and cauterized. All blood was removed from the bone of the tibia, femur, and patella with pulsed lavage. I then proceeded with cementing. Two packs of antibiotic bone cement were prepared on the back table by surgical product sales consultant. I then proceeded with cementing of the tibia first. Cement was impacted in the keel as well as deeply seated into the bone. A second coat of cement was then placed. The tibia was then impacted into place. Excess cement was removed with Francisco's and jokers. I then proceeded with cementing of the femoral component. The femoral component was also cemented using standard technique. Excess cement was removed. A 10 mm trial insert was then placed in the knee. It was brought into full extension with a constant axial load placed until the cement had hardened. The patellar component was then cemented. This was held firmly with a compressive device until the cement had dried. When the cement had dried, the knee was taken out of extension. All excess cement was removed from around the prosthesis. I then trialed the knee with a 10 mm insert. Flexion and extension gaps were appropriate. The knee was stable. It came into full extension. I decided to go forward with a 10 mm medial congruent cross-linked cruciate- retaining tibial insert. Polyethylene was then placed onto the tibial tray and locked in place. The knee was then reduced. The knee was again further irrigated with sterile saline solution with antibiotic added. The tourniquet was then deflated. The total tourniquet time for the procedure was 49 minutes at 250 mmHg. Final components were Sujatha Persona size 9 narrow cruciate-retaining femoral component, size E tibial tray, a 10 mm medial congruent cruciate-retaining polyethylene insert, and a 29 x 8 mm patella. I then proceeded with closure. Again, the knee was thoroughly irrigated. The quadriceps tendon and the medial retinaculum were reapproximated with a #2 Ethibond suture. The extensor mechanism was then closed with a running #2 Quill suture. Subcutaneous tissues were then closed with a 2-0 Vicryl interrupted suture. The skin was closed with a running 3-0 Quill suture. Dermabond was applied to the incision. Sterile compressive dressing was then applied. All sponge and needle counts were deemed correct prior to closure. The patient tolerated the procedure without apparent complication. She was transferred to the recovery room in stable condition. MMODL / IJN: [id number] /
--- NOTE | 2023-01-14 15:25 | XR ---
EXAMINATION TYPE: XR knee limited LT DATE OF EXAM: 01/14/2023 COMPARISON: NONE HISTORY: 67-year-old female evaluation for postoperative abnormality and alignment TECHNIQUE: 2 views FINDINGS: Images show placement of left total knee arthroplasty. Both the distal femoral and proximal tibial components of the prosthesis are well seated without periprosthetic fracture. Alignment gross ly anatomic. Anterior soft tissue swelling with scattered soft tissue air as well as intra-articular air related to recent operation. IMPRESSION: Uncomplicated postoperative appearance left total knee arthroplasty.
[2023-01-14] MEDS: HYDROcodone/APAP 7.5-325MG 1 EACH TAB PO PRN (16:53)
[2023-01-14] MEDS: LACTATED RINGERS 1,000 ML IV SCH ×2 (17:10→21:21)
[2023-01-14] MEDS: diazePAM 5 MG TAB PO PRN (18:52)
[2023-01-14] MEDS: ASPIRIN 81 MG PO SCH (21:27)
[2023-01-14] MEDS: SENNOSIDES-DOCUSATE SODIUM 1 EACH TAB PO SCH (21:27)
[2023-01-14] MEDS: HYDROmorphone 0.5 MG/0.5 ML SYRINGE IVP PRN (21:27)
[2023-01-14] MEDS: MECLIZINE 25 MG TAB PO PRN (22:23)
[2023-01-15] MEDS: HYDROmorphone 0.5 MG/0.5 ML SYRINGE IVP PRN ×4 (01:00→16:52)
[2023-01-15] MEDS: HYDROcodone/APAP 7.5-325MG 1 EACH TAB PO PRN ×2 (02:36→08:51)
[2023-01-15] MEDS: diazePAM 5 MG TAB PO PRN (02:38)
[2023-01-15] MEDS: LACTATED RINGERS 1,000 ML IV SCH ×3 (05:50→21:02)
--- NOTE | 2023-01-15 07:13 | P.PN ---
Progress Note - Text Progress Note Date: 01/15/23 Postoperative day # 1 status post total knee arthroplasty, on adductor canal perineural catheter placed for postoperative analgesia. Ropivacaine 0.2% 8 mL per hour through ON-Q pump continuous infusion. Pain is well controlled. On visual analog scale 3/10 Patient is taking PRN oral pain medications. Catheter site: Looks Ok. There is no erythema or tenderness. Continue with the current pain management plan and will follow.
[2023-01-15] MEDS: ASPIRIN 81 MG PO SCH ×2 (08:39→20:37)
[2023-01-15] MEDS: MULTIVITAMINS, THERA 1 EACH TAB PO SCH (10:57)
[2023-01-15] MEDS: lisinopriL 20 MG TAB PO SCH (10:57)
[2023-01-15] MEDS: amLODIPine 5 MG TAB PO SCH (10:57)
[2023-01-15] MEDS: MECLIZINE 25 MG TAB PO PRN ×2 (11:01→19:28)
[2023-01-15] MEDS: PANTOPRAZOLE 40 MG/10 ML VIAL IVP SCH (11:05)
[2023-01-15] MEDS ORDERED: HYDROcodone/APAP 10-325MG 1 EACH TAB PO PRN (11:51)
--- NOTE | 2023-01-15 12:30 | P.PN ---
Subjective Progress Note Date: 01/15/23 Principal diagnosis: Left TKA Patient is seen at bedside this morning. She is postop day #1 from left total knee arthroplasty. She has pain at the surgical site as expected but denies any new complaints. She denies numbness, tingling or calf pain. Review of systems is negative for fever, chills, chest pain, shortness of breath or other Objective - Vital Signs Vital signs: Vital Signs Temp 98.5 F 01/15/23 07:49 Pulse 98 01/15/23 07:49 Resp 16 01/15/23 07:49 BP 155/90 01/15/23 07:49 Pulse Ox 97 01/15/23 07:49 FiO2 Intake & Output 01/14/23 01/15/23 01/15/23 18:59 06:59 18:59 Intake Total 1501 Output Total 100 Balance 1401 Weight 84.3 kg Intake: IV 1201 Oral 300 Output: Estimated Blood Loss 100 Other: Voiding Method Toilet Toilet Toilet # Voids 1 2 - Exam Inspection reveals a benign surgical wound. There is no active bleeding or drainage. Neurovascular status is intact throughout the lower extremity with motor and sensation fully intact. Calf is soft and nontender. 2+ dorsalis pedis pulse and less than 2 second cap refill is present. - Constitutional General appearance: Present: no acute distress Assessment and Plan (1) Osteoarthritis of left knee Narrative/Plan: She will continue with routine postop orthopedic protocol including pain management, wound care, PT, DVT prophylaxis and medical management. Expect that she will transfer to home tomorrow Current Visit: Yes Status: Acute Priority: Medium Code(s): M17.12 - UNILATERAL PRIMARY OSTEOARTHRITIS, LEFT KNEE SNOMED Code(s): 340599100277207 Time with Patient: Less than 30
[2023-01-15 13:41] LABS: Basophils # (A) 0.05 X 10*3/uL (0.00-0.10); Basophils % (A) 0.6 %; Eosinophils # (A) 0.01 X 10*3/uL (0.04-0.35); Eosinophils % (A) 0.1 %; HCT 33.8 % (37.2-46.3); HGB 11.1 d/dL (12.0-15.0); Lymphocytes # (A) 1.53 X 10*3/uL (0.90-5.00); Lymphocytes % (A) 18.1 %; MCH 31.4 pg (27.0-32.0); MCHC 32.8 d/dL (32.0-37.0); MCV 95.5 FL (80.0-97.0); Mean Platelet Volume 10.2 FL (9.5-12.2); Monocytes # (A) 0.61 X 10*3/uL (0.20-1.00); Monocytes % (A) 7.2 %; NRBC Per 100 WBC 0 X 10*3/uL (0.00-0.01); Neutrophils % (A) 73.6 %; Platelet Count 217 X 10*3/uL (140-440); RBC 3.54 X 10*6/uL (4.10-5.20); RDW 12.8 % (11.5-14.5); WBC 8.43 X 10*3/uL (4.50-10.00)
--- NOTE | 2023-01-15 13:59 | P.CONS ---
History of Present Illness - Reason for Consult Consult date: 01/15/23 Medical management HTN Requesting physician: Endy Goodson - Chief Complaint Left Knee OA,S/P OR - History of Present Illness This is a pleasant 67-year-old female past medical history of fibromyalgia, gastro-esophageal reflux disease, hypertension, hyperlipidemia, osteoarthritis, rheumatoid arthritis, PONV, vertigo, former nicotine dependence, currently on antibiotics for s/sx of UTI-placed on antibiotics per orthopedic surgery outpatient and multiple other medical issues, status post left total knee arthroplasty. Tolerated procedure well. PT pending. Mild tachycardia last night, resolved after using incentive spirometer. Denies chest pain, palpitations or shortness of breath. Maintaining O2 sats in the 90s on room air. Positive flatus. Pain controlled. Denies lightheadedness, dizziness or focal deficits. Afebrile. Review of Systems Constitutional: Denied any fatigue denied any fever. Cardio vascular: denied any chest pain, palpitations Gastrointestinal denied any nausea vomiting Pulmonary: Denied any shortness of breath cough Neurologic denied any new focal deficits ROS Statement: Those systems with pertinent positive or pertinent negative responses have been documented in the HPI. ROS Other: All systems not noted in ROS Statement are negative. Past Medical History Past Medical History: Fibromyalgia, GERD/Reflux, Hearing Disorder / Deafness, Hyperlipidemia, Hypertension, Musculoskeletal Disorder, Osteoarthritis (OA), Rheumatoid Arthritis (RA) Additional Past Medical History / Comment(s): Currently on antibiotic for signs of UTI per Dr Goodson's Vertigo. Current left sciaticia pain. Hx Migraines 40 yrs ago. Palpitations, Krvix-Ofrmywfvj-Omvpc Syndrome. Hx ulcer, IBS. Dumping Syndrome. Hx Anemia. Scoliosis. Slightly hard of hearing in left ear. History of Any Multi-Drug Resistant Organisms: None Reported Past Surgical History: Appendectomy, Section, Cholecystectomy, Hysterectomy, Orthopedic Surgery, Tubal Ligation Additional Past Surgical History / Comment(s): Right knee arthroscopy X2, left knee arthroscopy, surgery on right great toe, varicose vein surgery right leg, right shoulder surgery, right hand surgery, hiatal hernia surgery, which led to diaphragm surgery. Past Anesthesia/Blood Transfusion Reactions: Postoperative Nausea & Vomiting (PONV) Additional Past Anesthesia/Blood Transfusion Reaction / Comm: Took a long time to come out after cholecystectomy. No hx blood transfusion. "Dad woke up in middle of surgery, he was an alcoholic". Past Psychological History: No Psychological Hx Reported Smoking Status: Former smoker Past Alcohol Use History: Rare Additional Past Alcohol Use History / Comment(s): Smoked less than 1ppd, quit in 1985, smoked for 5 yrs. No alcohol use since 2016. Past Drug Use History: None Reported - Past Family History Father Family Medical History: Cancer Additional Family Medical History / Comment(s): Liver cancer. Medications and Allergies Home Medications Medication Instructions Recorded Confirmed Type ALPRAZolam [Xanax] 0.5 mg PO HS 06/24/17 01/14/23 History Multivitamins, Thera [Multivitamin 1 tab PO DAILY 07/15/17 01/14/23 History (formulary)] ALPRAZolam [Xanax] 0.25 mg PO BID PRN 11/11/22 01/14/23 History Atorvastatin [Lipitor] 10 mg PO HS 11/11/22 01/14/23 History Cyclobenzaprine [Flexeril] 5 mg PO BID PRN 11/11/22 01/14/23 History Cyclobenzaprine [Flexeril] 10 mg PO HS 11/11/22 01/14/23 History Meclizine HCl 25 mg PO Q8H PRN 7 Days #21 tablet 11/11/22 01/14/23 Rx amLODIPine BESYLATE/BENAZEPRIL 1 cap PO QAM 11/11/22 01/14/23 History [Lotrel 5-20 mg Capsule] Sulfamethox-Tmp 800-160Mg [Bactrim 1 tab PO BID 01/07/23 01/14/23 History DS 800-160 mg] Terbinafine [LamISIL] 250 mg PO DAILY PRN 01/07/23 01/14/23 History valACYclovir HCL [Valacyclovir] 500 mg PO DAILY 01/07/23 01/14/23 History Allergies Allergy/AdvReac Type Severity Reaction Status Date / Time acetaminophen [From Vicodin] Allergy Hallucinati Verified 01/14/23 07:53 ons/vomitin g codeine Allergy Hx Verified 01/14/23 07:53 withdrawl after being on it for a long time Egg Derived Allergy Anaphylaxis Verified 01/14/23 07:53 hydrocodone [From Vicodin] Allergy Hallucinati Verified 01/14/23 07:53 ons ibuprofen [From Motrin] Allergy swelling/An Verified 01/14/23 07:53 aphylaxis morphine Allergy Severe Verified 01/14/23 07:53 Vomiting Raw Poultry Allergy Anaphylaxis Uncoded 01/14/23 07:53 smoked meat Allergy Anaphylaxis Uncoded 01/14/23 07:53 Physical Exam Vitals: Vital Signs Temp Pulse Pulse Pulse Pulse Resp BP 01/15/23 07:49 98.5 F 98 16 01/15/23 06:00 99.2 F 97 14 01/15/23 01:18 98.5 F 97 130/84 01/14/23 22:46 98.7 F 104 H 16 01/14/23 19:54 98.3 F 108 H 18 01/14/23 18:38 109 H 01/14/23 17:57 107 H 01/14/23 17:16 124 H 137/79 01/14/23 16:49 107 H 136/83 01/14/23 16:34 109 H 120/79 01/14/23 16:19 112 H 120/69 01/14/23 16:15 98.6 F 119 H 17 124/86 01/14/23 15:30 110 H 20 159/72 01/14/23 14:57 96 18 146/69 01/14/23 14:00 93 14 164/73 01/14/23 13:30 89 16 161/71 01/14/23 13:00 87 14 166/77 01/14/23 12:42 87 16 150/70 01/14/23 12:25 90 16 154/68 01/14/23 12:10 85 16 148/62 01/14/23 11:50 97.7 F 86 16 164/76 BP BP Pulse Ox 01/15/23 07:49 155/90 97 01/15/23 06:00 137/82 96 01/15/23 01:18 98 01/14/23 22:46 132/72 97 01/14/23 19:54 129/90 97 01/14/23 18:38 124/64 01/14/23 17:57 98 01/14/23 17:16 96 01/14/23 16:49 95 01/14/23 16:34 96 01/14/23 16:19 96 01/14/23 16:15 98 01/14/23 15:30 98 01/14/23 14:57 173/79 98 01/14/23 14:00 97 07/27/23 13:30 99 01/14/23 13:00 98 01/14/23 12:42 100 01/14/23 12:25 100 01/14/23 12:10 90 L 01/14/23 11:50 96 Intake and Output 01/14/23 01/15/23 01/15/23 22:59 06:59 14:59 Intake Total 300 Balance 300 Intake: Oral 300 Other: Voiding Method Toilet Toilet # Voids 1 2 Weight 84.3 kg PHYSICAL EXAM: VITAL SIGNS: [As above] GENERAL: Alert and oriented 3, sitting up in bed, no acute distress HEENT: Normocephalic, Conjunctivae normal. eyes normal. NECK: Supple, No JVD. CARDIOVASCULAR: S1, S2 regular.. No murmur RESPIRATION: Unlabored, Breath sounds diminished in the bases. No rhonchi or crackles. No bronchial breathing. ABDOMEN: Soft, nontender . No guarding. no masses palpable. No ascites, No hepatosplenomegaly.Bowel sounds heard. EXT: Left knee dressing clean dry and intact. Minimal edema, no calf tenderness. Positive DP pulse. PSYCHIATRY: Alert and oriented X3, mood and affect normal. NERVOUS SYSTEM: Cranial N 2-12 grossly normal. No focal deficits. Strength and sensation grossly intact. Skin: Warm and dry, no rash Assessment and Plan Assessment: Left knee osteoarthritis, status post left total knee arthroplasty Acute UTI outpatient, placed on antibiotic therapy as per orthopedic surgery, resumed Hypertension Gastroesophageal reflux disease PONV History of WPW History of nicotine dependence Fibromyalgia And multiple other medical issues Plan: Continue on current medication regime ,monitoring and symptomatic treatment. Antibiotics for UTI initiated outpatient as per Dr. Goodson, resumed, close monitoring of renal function with BMP ordered. Aggressive pulmonary toileting with incentive spirometer reinforced. Pain management, DVT prophylaxis as per primary. Discharge planning in progress. Thank you Dr. Goodson for the consult. The impression and plan of care has been dictated as directed. : I performed a history and examination of this patient, discussed the same with the dictator. I agree with the dictator's note ,documented as a scribe. Any additional findings or plans will be noted.
[2023-01-15] MEDS: HYDROcodone/APAP 10-325MG 1 EACH TAB PO PRN ×2 (14:30→20:36)
[2023-01-15] MEDS: SULFAMETHOX-TMP 800-160MG 1 EACH TAB PO SCH ×2 (16:49→20:37)
[2023-01-15] MEDS: ONDANSETRON 4 MG/2 ML VIAL IVP PRN (18:07)
[2023-01-15] MEDS: SENNOSIDES-DOCUSATE SODIUM 1 EACH TAB PO SCH (20:37)
[2023-01-16] MEDS: ONDANSETRON 4 MG/2 ML VIAL IVP PRN (01:52)
[2023-01-16 02:26] LABS: BUN/Creat Ratio 15.71 Ratio (12.00-20.00); Calcium 8.6 mg/dL (8.7-10.3); Carbon Dioxide 21.1 mmol/L (21.6-31.8); Chloride 100 mmol/L (96-109); Glucose 117 mg/dL (70-110); Potassium 4.6 mmol/L (3.5-5.5); Sodium 133 mmol/L (135-145)
[2023-01-16] MEDS: HYDROcodone/APAP 10-325MG 1 EACH TAB PO PRN (06:26)
[2023-01-16] MEDS: amLODIPine 5 MG TAB PO SCH (07:07)
[2023-01-16 07:13] VITALS: PULSE 96; RESP 16; TEMP 97.6
[2023-01-16 08:40] VITALS: BP 147/78
[2023-01-16] MEDS: PANTOPRAZOLE 40 MG/10 ML VIAL IVP SCH (08:59)
[2023-01-16] MEDS: lisinopriL 20 MG TAB PO SCH (08:59)
[2023-01-16] MEDS: ASPIRIN 81 MG PO SCH (08:59)
[2023-01-16] MEDS: HYDROmorphone 0.5 MG/0.5 ML SYRINGE IVP PRN (08:59)
[2023-01-16] MEDS: MULTIVITAMINS, THERA 1 EACH TAB PO SCH (08:59)
[2023-01-16] MEDS: SULFAMETHOX-TMP 800-160MG 1 EACH TAB PO SCH (08:59)
--- NOTE | 2023-01-16 11:40 | P.DS ---
Providers Date of admission: 01/15/23 11:47 Expected date of discharge: 01/16/23 Attending physician: Endy Goodson Consults: 01/14/23 18:42 Consult Physician Stat Consulting Provider: Nakul Giordano Reason/Comments: post op medical management Do you want consulting provider notified?: Yes Primary care physician: Nakul Giordano - Discharge Diagnosis(es) (1) Osteoarthritis of left knee Patient was admitted to the OR on 01/14/23 to undergo a left total knee arthroplasty. She had failed conservative measures as an outpatient and desired to proceed with elective surgery after given informed consent. She underwent the above procedure which she tolerated well without complication. Postoperative hospital course has remained without complication. On day of discharge he is afebrile, vital signs stable, labs within acceptable ranges, tolerating by mouth meds and diet, voiding without difficulty, positive flatus, denies abdominal pain or calf pain, pain is controlled on oral pain medication and has no new complaints. Wound is benign, neurovascular status is intact, calf is soft and nontender, abdomen soft and nontender. Review of systems is negative for numbn ess, tingling, fever, chills, chest pain, shortness of breath, nausea, vomiting, dizziness, headaches, slurred speech or other. Current Visit: Yes Status: Acute Priority: Medium Procedures: Left TKA Patient Condition at Discharge: Good Plan - Discharge Summary Discharge Rx Participant: Yes New Discharge Prescriptions: New Docusate [Colace] 100 mg PO BID #60 capsule HYDROcodone/APAP 10-325MG [[place] 10-325] 1 tab PO Q4HR PRN #42 tab PRN Reason: Pain Aspirin [Adult Low Dose Aspirin EC] 81 mg PO BID #60 tab Ondansetron [Zofran] 4 mg PO Q8HR PRN #21 tab PRN Reason: Nausea No Action ALPRAZolam [Xanax] 0.5 mg PO HS Multivitamins, Thera [Multivitamin (formulary)] 1 tab PO DAILY Atorvastatin [Lipitor] 10 mg PO HS Cyclobenzaprine [Flexeril] 5 mg PO BID PRN PRN Reason: Muscle Spasm Cyclobenzaprine [Flexeril] 10 mg PO HS ALPRAZolam [Xanax] 0.25 mg PO BID PRN PRN Reason: Anxiety Terbinafine [LamISIL] 250 mg PO DAILY PRN PRN Reason: Toenail fungus valACYclovir HCL [Valacyclovir] 500 mg PO DAILY amLODIPine BESYLATE/BENAZEPRIL [Lotrel 5-20 mg Capsule] 1 cap PO QAM Meclizine HCl 25 mg PO Q8H PRN 7 Days #21 tablet PRN Reason: Nausea/Anxiety Sulfamethox-Tmp 800-160Mg [Bactrim DS 800-160 mg] 1 tab PO BID Discharge Medication List ALPRAZolam [Xanax] 0.5 mg PO HS 06/24/17 [History] Multivitamins, Thera [Multivitamin (formulary)] 1 tab PO DAILY 07/15/17 [History] ALPRAZolam [Xanax] 0.25 mg PO BID PRN 11/11/22 [History] Atorvastatin [Lipitor] 10 mg PO HS 11/11/22 [History] Cyclobenzaprine [Flexeril] 5 mg PO BID PRN 11/11/22 [History] Cyclobenzaprine [Flexeril] 10 mg PO HS 11/11/22 [History] Meclizine HCl 25 mg PO Q8H PRN 7 Days #21 tablet 11/11/22 [Rx] amLODIPine BESYLATE/BENAZEPRIL [Lotrel 5-20 mg Capsule] 1 cap PO QAM 11/11/22 [History] Sulfamethox-Tmp 800-160Mg [Bactrim DS 800-160 mg] 1 tab PO BID 01/07/23 [History] Terbinafine [LamISIL] 250 mg PO DAILY PRN 01/07/23 [History] valACYclovir HCL [Valacyclovir] 500 mg PO DAILY 01/07/23 [History] Aspirin [Adult Low Dose Aspirin EC] 81 mg PO BID #60 tab 01/16/23 [Rx] Docusate [Colace] 100 mg PO BID #60 capsule 01/16/23 [Rx] HYDROcodone/APAP 10-325MG [[place] 10-325] 1 tab PO Q4HR PRN #42 tab 01/16/23 [Rx] Ondansetron [Zofran] 4 mg PO Q8HR PRN #21 tab 01/16/23 [Rx] Follow up Appointment(s)/Referral(s): Endy Goodson MD [STAFF PHYSICIAN] - 01/26/23 1:05 pm Activity/Diet/Wound Care/Special Instructions: Weight bear as tolerated May shower after 3 days if no bleeding Keep wound clean and dry Take meds as directed F/U with Dr. Goodson in office Discharge Disposition: HOME WITH HOME HEALTH SERVICES
--- NOTE | 2023-01-16 13:38 | P.PN ---
Subjective Progress Note Date: 01/16/23 This is a pleasant 67-year-old female past medical history of fibromyalgia, gastro-esophageal reflux disease, hypertension, hyperlipidemia, osteoarthritis, rheumatoid arthritis, PONV, vertigo, former nicotine dependence, currently on antibiotics for s/sx of UTI-placed on antibiotics per orthopedic surgery outpatient and multiple other medical issues, status post left total knee arthroplasty. Tolerated procedure well. PT pending. Mild tachycardia last night, resolved after using incentive spirometer. Denies chest pain, palpitations or shortness of breath. Maintaining O2 sats in the 90s on room a ir. Positive flatus. Pain controlled. Denies lightheadedness, dizziness or focal deficits. Afebrile. 01/16/2023 Patient is evaluated today sitting up in chair. Post op day 2 total left knee. No acute complaints overnight. Pain is managed with oral medications. Currently denying shortness of breath, no chest pain, no n/v/d. Bowels are moving, urinating without difficulty. All home medications have been resumed on discharge. Recommending to repeat sodium level in 2 to 3 days and follow up with PCP on discharge as well as orthopedics as recommended. Patient has been started on Aspirin BID for the next 30 days. Review of Systems Constitutional: Denied any fatigue denied any fever. Cardio vascular: denied any chest pain, palpitations Gastrointestinal: denied any nausea, vomiting, diarrhea Pulmonary: Denied any shortness of breath cough Neurologic denied any new focal deficits All inpatient medications were reviewed and appropriate changes in these medications as dictated in the interval history and assessment and plan. PHYSICAL EXAMINATION: GENERAL: The patient is alert and oriented x3, not in any acute distress. Well developed, well nourished. HEENT: Pupils are round and equally reacting to light. EOMI. No scleral icterus. No conjunctival pallor. Normocephalic, atraumatic. No pharyngeal erythema. No thyromegaly. CARDIOVASCULAR: S1 and S2 present. No murmurs, rubs, or gallops. PULMONARY: Chest is clear to auscultation, no wheezing or crackles. ABDOMEN: Soft, nontender, nondistended, normoactive bowel sounds. No palpable organomegaly. MUSCULOSKELETAL: No joint swelling or deformity. Post surgical knee, No swelling. EXTREMITIES: No cyanosis, clubbing, or pedal edema. NEUROLOGICAL: Gross neurological examination did not reveal any focal deficits. SKIN: No rashes. Assessment and Plan Left knee osteoarthritis, status post left total knee arthroplasty Acute UTI outpatient, placed on antibiotic therapy as per orthopedic surgery, resumed Hypertension Gastroesophageal reflux disease Had some post op nausea and vomiting has resolved History of WPW History of nicotine dependence Fibromyalgia GI prophylaxis DVT prophyaxis Aspirin BID as per primary Patient is stable for discharge home with home care and home physical therapy. Recommending to continue on home blood pressure medications. Repeat labs in 2 to 3 days monitor sodium level. Patient to follow up with Dr Giordano in 1 to 2 days and also follow up with Dr Goodson as recommended. Thank you for this consultation. Patient medically is cleared for discharge. The impression and plan of care has been dictated by Shannan Farooq, Nurse Practitioner as directed. Dr. Donita MD I have performed a history and physical examination and medical decision making of this patient, discussed the same with the dictator, and agree with the dictators assessment and plan as written, documented as a scribe. Based on total visit time, I have performed more than 50% of this visit. Objective - Vital Signs Vital signs: Vital Signs Temp 97.6 F 01/16/23 07:12 Pulse 96 01/16/23 07:12 Resp 16 01/16/23 07:12 BP 147/78 01/16/23 08:40 Pulse Ox 96 01/16/23 07:12 FiO2 Intake & Output 01/15/23 01/16/23 01/16/23 18:59 06:59 18:59 Intake Total 1080 Balance 1080 Intake: Oral 1080 Other: Voiding Method Toilet Toilet # Voids 3 5 - Labs CBC & Chem 7: 01/15/23 08:32 01/15/23 14:39 Labs: Abnormal Lab Results - Last 24 Hours (Table) 01/15/23 01/15/23 Range/Units 08:32 14:39 RBC 3.54 L (4.10-5.20) X 10*6/uL Hgb 11.1 L (12.0-15.0) d/dL Hct 33.8 L (37.2-46.3) % Eosinophils # 0.01 L (0.04-0.35) X 10*3/uL Sodium 133 L (135-145) mmol/L Carbon Dioxide 21.1 L (21.6-31.8) mmol/L Glucose 117 H (70-110) mg/dL Calcium 8.6 L (8.7-10.3) mg/dL Assessment and Plan Time with Patient: Less than 30
== END 2023-01-16 14:13 | disposition home health service (06) ==
LOC: OR 07:26 → 4SSUR 11:58 → OR 01-15 09:39 → 4SSUR 01-15 11:47
PROVIDERS: ADMIT Orthopaedic Surgery Sports Medicine; ATTEND Orthopaedic Surgery Sports Medicine
DX: M17.12 Unilateral primary osteoarthritis, left knee (principal); N39.0 Urinary tract infection, site not specified; I10 Essential (primary) hypertension; M79.7 Fibromyalgia; K21.9 Gastro-esophageal reflux disease without esophagitis; E78.5 Hyperlipidemia, unspecified; M06.9 Rheumatoid arthritis, unspecified; M19.90 Unspecified osteoarthritis, unspecified site; R42 Dizziness and giddiness; R00.0 Tachycardia, unspecified; I45.6 Pre-excitation syndrome; R00.2 Palpitations; R11.2 Nausea with vomiting, unspecified; K58.9 Irritable bowel syndrome, unspecified; H91.92 Unspecified hearing loss, left ear; K91.1 Postgastric surgery syndromes; G43.909 Migraine, unspecified, not intractable, without status migrainosus; Z87.891 Personal history of nicotine dependence; Z90.49 Acquired absence of other specified parts of digestive tract; Z79.899 Other long term (current) drug therapy; Z88.5 Allergy status to narcotic agent; Z88.8 Allergy status to other drugs, medicaments and biological substances; Z91.012 Allergy to eggs; Z80.0 Family history of malignant neoplasm of digestive organs
CPT/HCPCS: 97530; 97162; 64999; 64448; 80048; 85025; 73560; 27447; G0378 ×2; C1776; C1713; C1751; J2250; J1200; J1100; J0690 ×3; J2405 ×3; J3010; J2795; J2704; C9113 ×2; J1170 ×3

== ENCOUNTER → 2023-04-08 | Outpatient (CLI) | payer MEDICARE, OTHER | END | disposition home or self-care (01) | LOC: LABPAT 11:08 | PROVIDERS: ATTEND Orthopaedic Surgery Sports Medicine | DX: Z01.812 Encounter for preprocedural laboratory examination (principal); M17.11 Unilateral primary osteoarthritis, right knee | CPT/HCPCS: 85730 ==

== ENCOUNTER 2023-04-29 05:36 | Day surgery (SDC) | payer MEDICARE, OTHER ==
[2023-04-23 12:15] VITALS: BMI 34.0
[~2023-04-29 05:36] MED LIST changes: +DEXAMETHASONE SOD PHOSPHATE 4 MG/ML 1 ML VIAL IV ONE; +LACTATED RINGERS 1,000 ML IV SCH; +MELOXICAM 7.5 MG TAB PO PRN; -Pre Op ABX Message 1 EACH MISC MISCELLANE ONE
[2023-04-29] MEDS ORDERED: MIDAZOLAM 2 MG/2 ML VIAL IVP ONE (06:38)
[2023-04-29] MEDS ORDERED: fentaNYL (PF) 50 MCG/ML 2 ML AMP IV PRN (07:00)
[2023-04-29] MEDS ORDERED: ROPIVACAINE 5 MG/ML 30 ML VIAL ONE (08:17)
[2023-04-29] MEDS ORDERED: fentaNYL (PF) 50 MCG/ML 2 ML AMP ONE (08:17)
[2023-04-29] MEDS ORDERED: DEXAMETHASONE SOD PHOSPHATE 4 MG/ML 1 ML VIAL ONE (08:17)
[2023-04-29] MEDS ORDERED: MIDAZOLAM 2 MG/2 ML VIAL ONE (08:17)
[2023-04-29] MEDS ORDERED: PROPOFOL 10 MG/ML 20 ML VIAL IV ONE (08:17)
[2023-04-29] MEDS ORDERED: TRANEXAMIC 1,000 MG/100ML-NACL PREMIX BAG ONE (08:17)
[2023-04-29] MEDS ORDERED: ceFAZolin 3,000 MG in SODIUM CHLORIDE 0.9% IRRIGATIO 3,000 ML IRRIGATION ONE (08:22)
[2023-04-29] MEDS ORDERED: NALOXONE 0.4 MG/ML 1 ML VIAL IV PRN (08:29)
[2023-04-29] MEDS ORDERED: bisacodyL 10 MG SUPP RECTAL PRN (08:29)
[2023-04-29] MEDS ORDERED: HYDROmorphone 0.5 MG/0.5 ML SYRINGE IVP PRN ×3 (08:29)
[2023-04-29] MEDS ORDERED: MAGNESIUM HYDROXIDE 2,400 MG/30 ML CUP PO PRN (08:29)
[2023-04-29] MEDS ORDERED: ACETAMINOPHEN TAB 325 MG TAB PO PRN (08:29)
[2023-04-29] MEDS ORDERED: HYDROcodone/APAP 5-325MG 1 EACH TAB PO PRN (08:29)
[2023-04-29] MEDS ORDERED: NA PHOS,M-B/NA PHOS,DI-BA 133 ML ENEMA RECTAL PRN (08:29)
[2023-04-29] MEDS ORDERED: ONDANSETRON 4 MG/2 ML VIAL IVP PRN (08:29)
[2023-04-29] MEDS ORDERED: traMADol 50 MG TAB PO PRN (08:29)
--- NOTE | 2023-04-29 10:57 | OP ---
OPERATIVE REPORT DATE OF SERVICE : 04/29/2023 PREOPERATIVE DIAGNOSIS: Right knee osteoarthrosis. POSTOPERATIVE DIAGNOSIS: Right knee osteoarthrosis. PROCEDURE PERFORMED: Right total knee arthroplasty. ANESTHESIA: Spinal with sedation. ESTIMATED BLOOD LOSS: 100 mL. TOURNIQUET TIME: 43 minutes at 250 mmHg. COMPLICATIONS: None apparent. DRAINS: None. DISPOSITION: Postanesthesia care unit. INDICATIONS FOR PROCEDURE: Frida is a very pleasant 68-year-old female with longstanding history of right knee pain. History and physical examination are consistent with advanced right knee osteoarthrosis. She has been through significant operative management up to this point. Further treatment options were discussed, and she decided to go forward with the right total knee arthroplasty. Risks of procedure were discussed with her in detail. These risks included, but are not limited to risk of infection, nerve damage, bleeding, pain, and a small risk of deep vein thrombosis which could lead to fatal pulmonary embolism. There is also a small risk of loosening of the implant, which could require revision operation. The patient understands these risks. All of her questions were answered to her satisfaction. An appropriate informed consent was obtained. DESCRIPTION OF PROCEDURE: The patient was identified in the preoperative holding area. Surgical site was marked by both the patient and myself. She was given 2 g of Ancef IV for prophylactic purposes. She was then transported to the operative suite. She was placed supine on the operating room table. Spinal anesthetic was then administered and dosed per the Anesthesia Department without apparent complication. An examination under anesthesia was then performed. The patient was 2 to 3 degrees shy of full extension. She had 100 degrees of flexion. Medial collateral ligament, lateral collateral ligament, and posterior cruciate ligaments were stable. Tourniquet was then placed high on the right upper thigh and well-padded in preparation for surgery. The patient's right lower extremity was then prepped and draped in usual sterile fashion. Standard surgical pause was undertaken to ensure that we were operating the correct site and that appropriate preoperative antibiotics had been given. All staff in the room were in agreement, and we proceeded. The outlines of the patella were marked with a surgical pen. A planned 12 cm vertical incision centered over the patella was marked with a surgical pen. The leg was then exsanguinated with an Esmarch dressing. The knee was then flexed, and the tourniquet was inflated to 250 mmHg. The total tourniquet time for the procedure was 43 minutes. Incision was then made with a 10-blade scalpel. Dissection was carried down sharply overlying the fascia. Great care was taken to minimize the skin flaps. The knee was then exposed using a standard medial parapatellar approach. A small cuff of quadriceps tendon was then left for suturing. She was in a bit of varus preoperatively. A standard medial release was then made. Superficial medial collateral ligament was dissected off the bone around to the posterior aspect of the proximal tibia. The medial meniscus was then excised as well. The lateral meniscus was also released anteriorly. The leg was then externally rotated. The patella was everted. The knee was flexed. Retractors were then placed to protect the collateral ligaments. I then proceeded to remove the infrapatellar fat pad. This was excised sharply tangentially with fibers of the patellar tendon. I then proceeded to remove the peripheral osteophytes. This was done with a rongeur. I then proceeded with the distal femoral resection. She did have near full extension. A planned 9 mm resection was then done. The femoral canal was then entered in the midline of the femur approximately 10 mm anterior to the origin of posterior cruciate ligament. The elissa was then advanced down to the center of the femur and placed intramedullary. Based on the preoperative radiographs, the angle between the anatomic and mechanical axis of the femur was approximately 4 to 5 degrees. The valgus angle of the distal femoral cutting guide was then set at 4 degrees for the right knee. The distal femoral cutting guide was then advanced over the intramedullary elissa. This was seated firmly against the femur. I then as mentioned planned to take 9 mm off the distal femur. The cutting block was then secured onto the femur with pins. The jig was then removed. The distal femoral cuts were made through the slot of the block. The pin was then removed. The distal femoral cutting block was removed. The accuracy of the distal femoral cuts was checked with 2 flat bars. I then proceeded with femoral sizing. Posterior referencing sizing guide was held firmly against the resected distal surface of the femur. The posterior condyles were resting on the posterior plane of the guide. A sizing stylus was then placed onto the anterior femur. The size was measured as a size 9. I then assessed for femoral rotation. Plan was for 3 degrees of external rotation. Three degrees of external rotation was placed onto the jig. These holes were then marked. I then confirmed the rotation by 3 separate methods. This was done using epicondylar axis as well as Whites[place] line and posterior referencing. It was deemed that the external rotation was proper. I then went forward with placement of the femoral cutting block. This was placed over the previously placed pin holes. The Jake wing was then placed onto the anterior slots to ensure that we would not notch the anterior femur with the anterior femoral cut. I then proceeded with the anterior femoral cut. This was flush with the anterior cortex of the femur. The posterior cuts were then made followed by the anterior chamfer cut and then the posterior chamfer cut. The cutting block was then removed. Throughout the resection, the collateral ligaments were protected with retractors. I then placed a trial size 9 femur. It was slightly wide, but the narrow fit very nicely, and it fit flush with the distal end of the femur. Drill holes were then made. I then proceeded with the tibial cut. I planned for cruciate-retaining knee. The guide was placed and set for varus and valgus and for slope. The height was set for approximately 2 mm resection from the medial tibial plateau, which was the lower side. I was happy with the alignment and the amount of resection. The cutting block was then pinned to the proximal tibia. The alignment elissa was removed. The proximal tibia was resected with a reciprocating saw. Again, this was done with retractors protecting the collateral ligaments as well as the posterior cruciate ligament. I then proceeded to evaluate the flexion and extension gaps. A 10 mm block was then placed. Flexion and extension gaps were equal. I then proceeded with resection of posterior osteophytes. She had a very minimal posterior osteophytes. This was done using a curved osteotome. This resected the posterior osteophytes, and posterior capsular stripping was done off the posterior aspect of the femur at this time. The osteophytes were then removed. I then proceeded with resection of the patella. The thickness of the patella was measured using the caliper. The thickness was 22 mm. The thickness of the anticipated patellar dome was taken into account. Resection was then performed and confirmed to be equal in 4 quadrants using a caliper. Approximately 14 mm of bone remained after resection. A 29 x 8 standard patellar trial was then placed. The holes were drilled, and the trial was then placed. I then proceeded with sizing the tibial plate. A size D tibial plate fit very nicely. I then placed the trial femur, the tibial tray, and the patellar button. A 10 mm trial tibial insert was also placed. The components fit very nicely. She had full extension and flexion. The extension and flexion gaps were equal and stable to varus and valgus stress. The patella tracked appropriately. The tibial tray rotation was marked with a Bovie. This was externally rotated properly. I then proceeded with tibial preparation. I first drilled the femoral holes and removed the femoral component. The tibial tray was then set for proper external rotation as well as medial and lateral placement of the tibia. This was then pinned into place. I then proceeded with punching the keel. I then decided to proceed with cementing of all our components. The knee was thoroughly irrigated with sterile saline solution via pulsed lavage. The lateral genicular artery was identified and cauterized. All blood was removed from the bone of the tibia, femur, and patella with pulsed lavage. I then proceeded with cementing. Two packs of antibiotic bone cement were prepared on the back table by the locate technician. I then proceeded with cementing the tibia first. The cement was impacted into the keel as well as deeply seated into the bone. A second coat of the cement was then placed. The tibia was then impacted into place. Excess cement was removed with [place]'s and Joker's. I then proceeded with cementing the femoral component. The femoral component was also cemented using standard technique. The excess cement was removed. A 10 mm trial insert was then placed into the knee. It was brought into full extension with a constant axial load placed until the cement had hardened. The patellar component was then cemented. This was held firmly with compressive device until the cement had dried. When the cement had dried, the knee was taken out of extension. All excess cement was removed from around the prosthesis. I then trialed the knee with a 10 mm insert. The flexion and extension gaps were appropriate. The knee was stable. It came into full extension. I decided to go forward with the 10 mm Medial Congruent cross-linked cruciate-retaining tibial insert. Polyethylene was then placed on the tibial tray and locked into place. The knee was then reduced. The knee was again further irrigated with sterile saline solution with antibiotic added. The tourniquet was then deflated. Total tourniquet time for the procedure was 43 minutes at 250 mmHg. Final components were Sujatha Persona size 9 narrow cruciate-retaining femoral component, size D tibial tray, a 10 mm Medial Congruent cruciate-retaining polyethylene insert, and a 29 x 8 mm patella. I then proceeded with closure. Again, the knee was thoroughly irrigated. The quadriceps tendon and the medial retinaculum were reapproximated with #2 Ethibond suture. The extensor mechanism was then closed with a running #2 Quill suture. Subcutaneous tissues were closed with 2-0 Vicryl interrupted suture. The skin was closed with a running 3-0 Quill suture. Dermabond was applied to the incision. Sterile compressive dressings were applied. All sponge and needle counts were deemed correct prior to closure. The patient tolerated the procedure without apparent complication. She was transferred to the recovery room in stable condition. MMODL / IJN: [id number] /
--- NOTE | 2023-04-29 11:00 | XR ---
EXAMINATION TYPE: XR knee limited RT DATE OF EXAM: 04/29/2023 10:43 AM INDICATION: Patient age:Female; 68 years old; Reason for study: Evaluation for Postop abnormality and alignment; PHH. COMPARISON: None. TECHNIQUE: The Right knee(s) was examined in frontal and crosstable lateral projections. FINDINGS: Postsurgical changes from right knee arthroplasty with distal femoral and proximal tibial c omponents. Hardware appears intact with appropriate alignment. There is associated soft tissue gas an d edema. No acute fracture or dislocation. IMPRESSION: Postsurgical changes from right knee arthroplasty. Hardware appears intact with appropriate alignment .
[2023-04-29] MEDS: HYDROcodone/APAP 10-325MG 1 EACH TAB PO PRN ×2 (14:20→20:14)
[2023-04-29] MEDS: hydrOXYzine pamoate 25 MG CAP PO PRN (14:21)
[2023-04-29 15:41] VITALS: RESP 18
[2023-04-29] MEDS: LACTATED RINGERS 1,000 ML IV SCH ×2 (16:19→19:58)
[2023-04-29] MEDS ORDERED: TERBINAFINE 250 MG TAB PO PRN (18:07)
[2023-04-29] MEDS ORDERED: MECLIZINE 25 MG TAB PO PRN (18:07)
[2023-04-29] MEDS ORDERED: ALPRAZolam 0.5 MG TAB PO PRN (18:07)
[2023-04-29] MEDS ORDERED: CYCLOBENZAPRINE 5 MG TAB PO PRN (18:07)
[2023-04-29] MEDS: DOCUSATE 100 MG CAP PO SCH (20:22)
[2023-04-29] MEDS: ASPIRIN 81 MG PO SCH (20:23)
[2023-04-29] MEDS ORDERED: ALPRAZolam 0.5 MG TAB PO SCH (21:00)
[2023-04-29] MEDS ORDERED: SENNOSIDES-DOCUSATE SODIUM 1 EACH TAB PO SCH (21:00)
[2023-04-29] MEDS ORDERED: ATORVASTATIN 10 MG TAB PO SCH (21:00)
[2023-04-29] MEDS ORDERED: CYCLOBENZAPRINE 10 MG TAB PO SCH (21:00)
[2023-04-30] MEDS: HYDROcodone/APAP 10-325MG 1 EACH TAB PO PRN ×3 (03:46→13:59)
[2023-04-30] MEDS: LACTATED RINGERS 1,000 ML IV SCH (03:50)
[2023-04-30] MEDS: hydrOXYzine pamoate 25 MG CAP PO PRN ×2 (08:42→13:59)
[2023-04-30] MEDS ORDERED: valACYclovir HCL 500 MG TAB PO SCH (09:00)
[2023-04-30] MEDS ORDERED: amLODIPine 5 MG TAB PO SCH (09:00)
[2023-04-30] MEDS ORDERED: lisinopriL 20 MG TAB PO SCH (09:00)
[2023-04-30] MEDS ORDERED: LORATADINE 10 MG TAB PO SCH (09:00)
[2023-04-30] MEDS ORDERED: MULTIVITAMINS, THERA 1 EACH TAB PO SCH ×2 (09:00→12:00)
[2023-04-30 09:42] LABS: Basophils # (A) 0.04 X 10*3/uL (0.00-0.10); Basophils % (A) 0.3 %; Eosinophils # (A) 0 X 10*3/uL (0.04-0.35); Eosinophils % (A) 0 %; HCT 37.1 % (37.2-46.3); Lymphocytes # (A) 1.41 X 10*3/uL (0.90-5.00); Lymphocytes % (A) 9.6 %; MCH 30.1 pg (27.0-32.0); MCHC 32.3 g/dL (32.0-37.0); Mean Platelet Volume 10.7 FL (9.5-12.2); Monocytes # (A) 1.29 X 10*3/uL (0.20-1.00); Monocytes % (A) 8.8 %; NRBC Per 100 WBC 0 X 10*3/uL (0.00-0.01); Neutrophils # (A) 11.79 X 10*3/uL (1.80-7.70); Neutrophils % (A) 80.7 %; Platelet Count 262 X 10*3/uL (140-440); RBC 3.99 X 10*6/uL (4.10-5.20); RDW 12.8 % (11.5-14.5); WBC 14.62 X 10*3/uL (4.50-10.00)
[2023-04-30] MEDS: DOCUSATE 100 MG CAP PO SCH (10:00)
[2023-04-30] MEDS: ASPIRIN 81 MG PO SCH (10:00)
--- NOTE | 2023-04-30 11:40 | P.ANPRN ---
Procedure Note - Anesthesia - Nerve Block Performed Right Adductor Canal Infusion Time Out Performed: Yes Date of Procedure: 04/29/23 Procedure Start Time: 06:38 Procedure Stop Time: 06:46 Location of Patient: PreOp Indication: Acute Post-Operative Pain, Requested by Surgeon Sedation Type: Sedate with meaningful contact maintained Preparation: Sterile Prep, Sterile Dressing Position: Supine Catheter: Indwelling Needle Types: Pajunk Needle Gauge: 21 Ultrasound used to visualize needle placement: Yes Ultrasound used to observe medication spread: Yes Blood Aspirated: No Pain Paresthesia on Injection Noted: No Resistance on Injection: Normal Image Stored and Saved: Yes Events: Uneventful and Well Tolerated (We will begin 0.5% 20 mL plus dexamethasone 4 mg)
--- NOTE | 2023-04-30 11:41 | P.ANPRN ---
Procedure Note - Anesthesia - Nerve Block Performed Right [place] Single Time Out Performed: Yes Date of Procedure: 04/29/23 Procedure Start Time: 06:47 Procedure Stop Time: 06:50 Location of Patient: PreOp Indication: Acute Post-Operative Pain, Requested by Surgeon Sedation Type: Sedate with meaningful contact maintained Preparation: Sterile Prep Position: Supine Needle Types: Pajunk Needle Gauge: 21 Ultrasound used to visualize needle placement: Yes Ultrasound used to observe medication spread: Yes Blood Aspirated: No Pain Paresthesia on Injection Noted: No Resistance on Injection: Normal Image Stored and Saved: Yes Events: Uneventful and Well Tolerated (Ropivacaine 0.5% 25 mL plus dexamethasone 4 mg)
--- NOTE | 2023-04-30 11:47 | P.PN ---
Progress Note - Text 04/30/23 634am 68-year-old female status post total knee replacement were Dr. Goodson. Patient has an On-Q pump for postop pain control with the solution running at 8 mL an hour. Patient says her VAS is 9/10. I do not believe her pain score as she is sitting comfortably in bed with no visible signs of being in pain.
[2023-04-30 14:28] VITALS: BP 140/81; PULSE 76; TEMP 97.9
== END 2023-04-30 14:36 | disposition home health service (06) ==
LOC: OR 05:36 → 4SSUR 10:08 → OR 04-30 14:36
PROVIDERS: ATTEND Orthopaedic Surgery Sports Medicine
DX: M17.11 Unilateral primary osteoarthritis, right knee (principal); I10 Essential (primary) hypertension; E78.5 Hyperlipidemia, unspecified; Z88.6 Allergy status to analgesic agent; Z88.5 Allergy status to narcotic agent; Z91.012 Allergy to eggs; Z98.890 Other specified postprocedural states; Z96.611 Presence of right artificial shoulder joint; Z96.652 Presence of left artificial knee joint; Z79.899 Other long term (current) drug therapy
CPT/HCPCS: 97161; 64999; 64448; 85025; 73560; 27447; C1776; C1713; C1751; J2250; J1100; J0690 ×2; J2405

== ENCOUNTER → 2023-06-25 | Outpatient (CLI) | payer MEDICARE, OTHER ==
--- NOTE | 2023-06-28 12:56 | MM ---
Reason for Exam: Screening (asymptomatic). Last mammogram was performed 1 year(s) and 1 month(s) ago. Patient History: Menarche at age 8. First Full-Term at age 19. Hysterectomy at age 31. Postmenopausal. Patient has history of breast feeding. Patient used Hormonal Contraceptives for 7 years. Risk Values: Tracy 5 year model risk: 1.7%. NCI Lifetime model risk: 5.0%. Prior Study Comparison: 07/24/2010 Bilateral Screening Mammogram, [facility]. 12/16/2017 Bilateral Screening Mammogram, [facility]. 05/21/2022 Bilateral MG 3D screening mammo w/cad, [facility]. Tissue Density: There are scattered fibroglandular densities. Findings: Analyzed By CAD. Pattern appears symmetrical and stable. No significant interval change is evident. Chronic nodularities within the right breast. No suspicious groups of microcalcifications, spiculated or lobular masses, architectural distortion or other secondary signs of malignancy are mammographically apparent. Overall Assessment: Benign, BI-RAD 2 Management: Screening Mammogram of both breasts in 1 year. A negative mammogram report should not preclude additional follow up of suspicious palpable abnormalities. Patient should continue monthly self breast exam. A clinical breast exam by your physician is recommended on an annual basis and results should be correlated with mammographic findings. Electronically signed and approved by: Brad Nunez D.O. Radiologis
== END | disposition home or self-care (01) ==
LOC: RADMAMWWP 14:52
PROVIDERS: ATTEND Family Medicine
DX: Z12.31 Encounter for screening mammogram for malignant neoplasm of breast (principal); Z78.0 Asymptomatic menopausal state
CPT/HCPCS: 77063; 77067

== ENCOUNTER → 2023-12-28 | Outpatient (CLI) | payer MEDICARE, OTHER ==
[~2023-12-28] MED LIST changes: -ACETAMINOPHEN TAB 500 MG TAB PO PRN; -DEXAMETHASONE SOD PHOSPHATE 4 MG/ML 1 ML VIAL IV ONE; +DOBUTamine DRIP for NUC MED 500 MG in DEXTROSE/WATER 1 250ML.BAG IV PRN; -GABAPENTIN 300 MG CAP PO PRN; -LACTATED RINGERS 1,000 ML IV SCH; -MELOXICAM 7.5 MG TAB PO PRN; -ONDANSETRON 4 MG/2 ML VIAL IVP PRN; -TRANEXAMIC 1,000 MG/100ML-NACL 1,000 MG in SALINE 1 100ML.BAG IVPB PRN
== END | disposition home or self-care (01) ==
LOC: RADNMMAIN 09:24
PROVIDERS: ATTEND Family Medicine
DX: Z53.9 Procedure and treatment not carried out, unspecified reason (principal)

== ENCOUNTER → 2024-02-04 | Outpatient (CLI) | payer MEDICARE, OTHER | END | disposition home or self-care (01) | LOC: LABPRL 12:00 | PROVIDERS: ATTEND Nurse Practitioner Family | DX: I10 Essential (primary) hypertension (principal); I25.10 Atherosclerotic heart disease of native coronary artery without angina pectoris | CPT/HCPCS: 80053; 83735; 84550 ==

== ENCOUNTER → 2024-05-15 | Outpatient (CLI) | payer MEDICARE, OTHER ==
--- NOTE | 2024-05-16 17:33 | BD ---
EXAMINATION TYPE: Axial Bone Density DATE OF EXAM: 05/15/2024 CLINICAL HISTORY: 69 years old Female. ICD-10 CODE: Z78.0 POSTMENOPAUSAL WO HRT , Additional History : Height: 59.7 in Weight: 206 lbs FRAX RISK QUESTIONS: History of Fracture in Adulthood: rt elbow fx age 24, edin ankles fx in 40's, lt ribs age 58, rt clavi quyen age 25,rt hand age 33 Secondary Osteoporosis: 3. Menopause before 43: partial hysterectomy age 30 EXAM MEASUREMENTS: Bone mineral densitometry was performed using the [employer]. Bone mineral density as measured about the Lumbar spine is: ----- L1-L4(G/cm2): 1.000 T Score Values are as follows: ----- L1: -1.8 ----- L2: -1.7 ----- L3: -1.2 ----- L4: -1.4 ----- L1-L4: -1.5 Z Score Values are as follows: ----- L1: -1.0 ----- L2: -1.0 ----- L3: -0.5 ----- L4: -0.6 ----- L1-L4: -0.8 Bone mineral density baseline Bone mineral density about the R hip (g/cm2): 0.810 Bone mineral density about the L hip (g/cm2): 0.643 T Score values are as follows: -----R Neck: -2.2 -----L Neck: -3.3 -----R Total: -1.6 -----L Total: -2.9 Z Score values are as follows: -----R Neck: -1.1 -----L Neck: -2.1 -----R Total: -0.7 -----L Total: -2.1 Bone mineral density baseline FRAX%s: The graph provided illustrates a 28.7% chance for a major osteoporotic fx and a 10.3% chance for the hips probability for fx in 10 years time. IMPRESSION: Osteoporosis (T Score less than -2.5). There is increased fracture risk and therapy is usually indicated based on age. Re-Screen 1-2 years. NOTE: T-SCORE=SD OF THE YOUNG ADULT MEAN. [facility], , 05/16/2024 5:31 PM
== END | disposition home or self-care (01) ==
LOC: RADBDWWP 15:20
PROVIDERS: ATTEND Family Medicine
DX: Z78.0 Asymptomatic menopausal state (principal); M81.8 Other osteoporosis without current pathological fracture
CPT/HCPCS: 77080

== ENCOUNTER 2024-06-28 05:38 | Day surgery (SDC) | payer MEDICARE, OTHER ==
[2024-06-22 12:47] VITALS: BMI 34.7
[~2024-06-28 05:38] MED LIST changes: -DOBUTamine DRIP for NUC MED 500 MG in DEXTROSE/WATER 1 250ML.BAG IV PRN; +LACTATED RINGERS 1,000 ML IV SCH; +LIDOCAINE 1% (10MG/ML) FOR IV START INTRADERMA PRN
[2024-06-28] MEDS ORDERED: LACTATED RINGERS 1,000 ML IV SCH (05:45)
[2024-06-28] MEDS: SODIUM CHLORIDE 0.9% 1,000 ML IV ONE (06:04)
[2024-06-28] MEDS: IV FLUID CONTINUATION 1,000 ML IV ONE (06:04)
[2024-06-28 06:08] VITALS: TEMP 97.5
[2024-06-28] MEDS ORDERED: PROPOFOL 10 MG/ML 20 ML VIAL IV ONE (06:59)
[2024-06-28] MEDS ORDERED: LIDOCAINE 2% (PF) 20 MG/ML 5 ML VIAL ONE (06:59)
[2024-06-28] MEDS ORDERED: ONDANSETRON 4 MG/2 ML VIAL IVP PRN (07:00)
--- NOTE | 2024-06-28 07:26 | P.PCN ---
Date of Procedure: 06/28/24 Procedure(s) Performed: Brief history: Patient is a pleasant 69-year-old white female scheduled for an elective upper endoscopy as well as colonoscopy as a part of evaluation of longstanding history of GERD and screening for colon cancer. History of Sesar fundoplication several years ago and since then she has been having intermittent dysphagia to solids and occasional heartburn. Procedure performed: Esophagogastroduodenoscopy with biopsy Colonoscopy cold snare polypectomy Preoperative diagnosis: GERD Screening for colon cancer Anesthesia: MAC Procedure: After informed consent was obtained from the patient was brought into the endoscopy unit and IV sedation was administered by anesthesia under continuous monitoring. Initially upper endoscopy was done. The Olympus GF 160 video endoscope was inserted inserted into the mouth and esophagus intubated without any difficulty and was gradually advanced into the stomach and duodenum and carefully examined. The bulb and second part of the duodenum appeared normal. The scope was then withdrawn into the stomach adequately insufflated with air and upon careful examination the antrum and body, gastritis and biopsies were done from this area. Mucosa of the cardia and fundus appeared normal. Evidence of of previous fundoplication noted. The scope was then withdrawn into the esophagus. The GE junction was located at 40 cm to the incisors. It appeared regular with no erythema erosions or ulcerations. Rest of the esophagus appeared normal. Patient tolerated the procedure well. At this time the patient continued to remain sedation. Initial digital rectal examination was normal. Olympus CF 160 video colonoscope was then inserted into the rectum and gradually advanced to the cecum without any difficulty. Careful examination was performed as the scope was gradually being withdrawn. The prep was excellent. The cecum had a 5 mm polyp that was removed by cold snare polypectomy. In the ascending colon there was another 5 mm polyp removed by cold snare polypectomy. Rest of the, ascending colon, transverse colon, descending colon, sigmoid colon and rectum appeared normal. Retroflexion was performed in the rectum and no lesions were noted. Patient tolerated the procedure well. Impression: 1. Upper endoscopy revealed mild antral gastritis and LA grade a esophagitis 2. Colonoscopy revealed" 5 mm cecal polyp status post cold snare polypectomy 5 mm ascending colon polyp status post cold snare polypectomy Recommendations: Findings of this examination were discussed with the patient as well as family. She was advised to follow-up with the biopsy results. If the biopsy reveals adenoma she can have repeat colonoscopy in 5 years
[2024-06-28 07:31] VITALS: RESP 16
[2024-06-28 07:49] VITALS: BP 139/83; PULSE 80
== END 2024-06-28 08:13 | disposition home or self-care (01) ==
LOC: ORWHC2ENDO 05:38
PROVIDERS: ATTEND Internal Medicine Gastroenterology
DX: Z12.11 Encounter for screening for malignant neoplasm of colon (principal); D12.0 Benign neoplasm of cecum; D12.2 Benign neoplasm of ascending colon; K21.00 Gastro-esophageal reflux disease with esophagitis, without bleeding; K29.50 Unspecified chronic gastritis without bleeding; I10 Essential (primary) hypertension; M19.90 Unspecified osteoarthritis, unspecified site; I45.6 Pre-excitation syndrome; Z79.82 Long term (current) use of aspirin; Z79.899 Other long term (current) drug therapy; Z88.5 Allergy status to narcotic agent; Z88.6 Allergy status to analgesic agent
CPT/HCPCS: 45385; 43239; J2704; J2003; 88305

== ENCOUNTER → 2024-10-10 | Outpatient (CLI) | payer MEDICARE, OTHER ==
--- NOTE | 2024-10-10 14:41 | MM ---
Reason for Exam: Screening (asymptomatic). Last mammogram was performed 1 year(s) and 3 month(s) ago. Patient History: Menarche at age 8. First Full-Term at age 19. Hysterectomy at age 31. Postmenopausal. Patient has history of breast feeding. Patient used Hormonal Contraceptives for 7 years. Risk Values: Tracy 5 year model risk: 1.7%. NCI Lifetime model risk: 4.7%. Prior Study Comparison: 12/16/2017 Bilateral Screening Mammogram, [facility]. 05/21/2022 Bilateral MG 3D screening mammo w/cad, [facility]. 06/25/2023 Bilateral MG 3D screening mammo w/cad, [facility]. Tissue Density: The breasts are heterogeneously dense, which may obscure small masses. Findings: Analyzed By CAD. There is no suspicious group of microcalcifications or new suspicious mass in either breast. Overall Assessment: Benign, BI-RAD 2 Management: Screening Mammogram of both breasts in 1 year. . Patient should continue monthly self-breast exams. A clinical breast exam by your physician is recommended on an annual basis. This exam should not preclude additional follow-up of suspicious palpable abnormalities. Note on Tracy scores and lifetime risk: 1. A Tracy score greater than 3% is considered moderate risk. If this is the case, consider specialist referral to assess eligibility for a risk reducing agent. 2. If overall lifetime risk for the development of breast cancer is 20% or higher, the patient may qualify for future screening with alternating mammogram and breast MRI. [facility], , 10/10/2024 2:38 PM. Electronically signed and approved by: Rayshawn Montelongo M.D. [facility]
== END | disposition home or self-care (01) ==
LOC: RADMAMWWP 14:15
PROVIDERS: ATTEND Family Medicine
DX: Z12.31 Encounter for screening mammogram for malignant neoplasm of breast (principal); R92.333 Mammographic heterogeneous density, bilateral breasts; Z78.0 Asymptomatic menopausal state; Z92.0 Personal history of contraception
CPT/HCPCS: 77063; 77067